=== PATIENT | female | born 2000 | race Caucasian/White ===

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

== ENCOUNTER → 2021-01-06 10:27 | Outpatient (CLI) | payer OTHER, MEDICAID, SELFPAY ==
[2021-01-06] MEDS: COVID-19 VACC #2, MRNA(MOD) 100 MCG/0.5 ML VIAL IM (10:33)
== END ==
PROVIDERS: PCP Family Medicine; Visit Provider Internal Medicine
DX: Z23 Encounter for immunization (principal)
CPT/HCPCS: 0012A; 91301

== ENCOUNTER → 2021-01-24 15:34 | Outpatient (CLI) | payer OTHER, MEDICAID, SELFPAY ==
[2020-05-08 02:13] LABS: Chlamydia trachomatis Negative (Negative); Mycoplasma genitalium Negative (Negative); Neisseria gonorrhoeae Negative (Negative)
== END ==
PROVIDERS: PCP Family Medicine; Referring Provider Family Medicine; Visit Provider Family Medicine
DX: Z11.3 Encounter for screening for infections with a predominantly sexual mode of transmission (principal)
CPT/HCPCS: 87491; 87591

== ENCOUNTER → 2021-04-20 11:29 | Outpatient (CLI) | payer OTHER, MEDICAID, SELFPAY ==
[2021-04-20 12:27] LABS: COVID19 -Nasal RAPID Negative (Negative)
== END ==
PROVIDERS: PCP Family Medicine; Referring Provider Student in an Organized Health Care Education/Training Program; Visit Provider Student in an Organized Health Care Education/Training Program
DX: Z20.822 Contact with and (suspected) exposure to COVID-19 (principal)
CPT/HCPCS: 87635

== ENCOUNTER 2021-06-07 14:05 | Emergency (ER) | payer OTHER, MEDICAID, SELFPAY ==
[2021-06-07 14:08] VITALS: BP 129/76; PULSE 79; RESP 20; TEMP 37.2; O2SAT 100
[2021-06-07 14:51] LABS: COVID19 -Nasal RAPID Negative (Negative)
--- NOTE | 2021-06-07 15:26 | DI.RAD.S_ITS ---
PROCEDURE: XR CHEST 2V INDICATIONS: cough, fever, vomiting TECHNIQUE: 2 views of the chest were acquired. COMPARISON: [facility], , CHEST 2 VIEW, 09/18/2017, 23:21. FINDINGS: Surgical changes and devices: None. Lungs and pleura: Lungs are clear. No pleural effusions or pneumothorax. Mediastinum: Mediastinal contours are normal. Heart size is normal. Bones and chest wall: No suspicious bony abnormalities. Soft tissues appear unremarkable. IMPRESSION: No acute cardiopulmonary abnormalities or focal airspace disease. Dictated by: Doug Davis M.D. on 06/07/2021 at 15:50 Approved by: Doug Davis M.D. on 06/07/2021 at 15:50
--- NOTE | 2021-06-07 15:46 | ED_ITS ---
HPI - URI/Sore Throat General Chief Complaint: Upper Respiratory Symptoms Stated Complaint: Covid like symptoms. Vomitting Time Seen by Provider: 06/07/21 14:12 Source: patient Mode of arrival: Ambulatory History of Present Illness HPI Narrative: 20-year-old female nonsmoker with noncontributory medical history presents with a few days of runny nose, sneezing, dry and hacking cough and vomiting presents for evaluation. She is concerned about possibly having COVID. She is immunized. She denies any exposure to persons known with COVID. She denies any fever or chills. She has no headache and is not dizzy nor weak or lightheaded. She denies any abdominal pain. She has no constipation or diarrhea. Related Data Previous Rx's Medication Instructions Recorded etonogestrel 68 mg subdermal 1 implant SUBDERMAL ONCE #1 each 06/04/20 implant (Nexplanon) clotrimazole 1 % topical cream 1 applictn TOP BID 56 Days #30 gram 06/18/20 ondansetron 4 mg disintegrating 4 mg PO TID-QID PRN #10 tab 06/07/21 tablet Allergies Allergy/AdvReac Type Severity Reaction Status Date / Time amoxicillin [AMOXICILLIN] Allergy Mild RASH Verified 10/18/20 10:53 Review of Systems Review of Systems Narrative: GENERAL: See HPI HEENT: See HPI RESPIRATORY: See HPI CARDIOVASCULAR: Denies chest pain, palpitations, orthopnea, edema, GASTROINTESTINAL: See HPI : Denies dysuria, frequency, incontinence, hematuria, urinary retention. MUSCULOSKELETAL: denies weakness, joint pain, or bony pain SKIN: Denies rash, skin lesions, or other NEUROLOGIC: Denies weakness, headache, numbness, change in speech, confusion, seizures, incoordination. PSYCHIATRIC: No concerning psychosocial issues. 12 point review of systems is negative except for those stated above Patient History Medical History Concussion Depression Generalized anxiety disorder (04/26/17) Major depressive disorder, recurrent severe without psychotic features Menorrhagia with irregular cycle (06/20/16) Primary insomnia (06/20/16) Status post vacuum-assisted vaginal delivery UTI (urinary tract infection) Surgical History Hx of appendectomy Family History Other Family history non-contributory Social History details: Lives with both parents firearms in home: Yes (locked but patient states has access to beltran.) Smoking Status: Never smoker alcohol intake: never substance use type: does not use Smoking Status: Never smoker alcohol intake frequency: 0-2 drinks per day Substance Use Type: does not use Exam Narrative Exam Narrative: GENERAL: [20 year old patient appears stated age. Well-developed patient, in mild distress. Holding an empty emesis bag HEAD: Atraumatic. Normocephalic. EYES: Pupils equal round and reactive. Extraocular motions intact. No scleral icterus. No injection or drainage. ENT: Moist mucous membranes Nose without bleeding, purulent drainage. Throat without erythema, tonsillar hypertrophy or exudate. Airway patent. NECK: Trachea midline. Non tender CARDIOVASCULAR: Regular rate and rhythm without murmurs, gallops, or rubs. RESPIRATORY: Clear to auscultation. Breath sounds equal bilaterally. No wheezes, rales, or rhonchi. No increased work of breathing, no use of intercostals or accessory muscles GASTROINTESTINAL: Abdomen soft, non-tender, nondistended. EXTREMITIES: No edema or joint tenderness. BACK: Nontender without deformity or crepitance. No flank tenderness. NEURO: AOx3. SKIN: No rash or erythema of visible areas Initial Vital Signs Initial Vital Signs: Vital Signs Temperature 99.0 F 06/07/21 14:08 Pulse Rate 79 06/07/21 14:08 Respiratory Rate 20 06/07/21 14:08 Blood Pressure 129/76 06/07/21 14:08 Pulse Oximetry 100 06/07/21 14:08 Course Orders Ordered: ED Orders 06/07/21 14:12 COVID19 -Nasal swab/Pre-Proc Stat 06/07/21 15:26 XR chest 2V Stat Vital Signs Vital signs: Vital Signs - 8 hr 06/07/21 14:08 06/07/21 15:48 Temperature 99.0 F Pulse Rate 79 97 H Respiratory Rate 20 Blood Pressure 129/76 115/62 Pulse Oximetry 100 98 MDM - URI/Sore Throat Lab Data Labs: Lab Results 09/28/21 Range/Units 14:12 SARS-CoV-2 (PCR) Negative (Negative) Imaging Data Chest x-ray: Radiologist's Impression: Lorena Royal??20??F??2000 ? Allergy/Adv: amoxicillin Close Chest X-Ray (Signed) Doug Davis - 06/07/[address] (Signed) CarlosBrian zavala - 12/07/20 Finger X-Ray (Signed) Liliam Monson - 08/18/20 Tibia/Fibula X-Ray (Signed) CarlosBrian zavala - 05/15/20 Ankle X-Ray (Signed) LitchfieldBrian zavala - 05/15/20 Ultrasound (Signed) Liliam Monson - 02/26/[address] (Signed) Doug Davis - 02/09/20 Obstetrics Ultrasound (Signed) Andrae Cantu - 09/11/19 Obstetrics Ultrasound (Signed) Andrae Cantu - 08/29/19 Obstetrics Ultrasound (Signed) Sergio Ocampo - 08/13/19 Ultrasound (Signed) Sergio Ocampo - 07/09/19 Ultrasound (Signed) Claudia Ruiz - 06/26/19 Abdomen Ultrasound (Signed) Radha Ray - 11/03/18 Shoulder X-Ray (Signed) Jimenez Orozco - 09/12/18 Finger X-Ray (Signed) Sergio Ocampo - 08/23/18 Radiology - Historical 11/16/17 Radiology - Historical 09/18/17 Radiology - Historical 05/11/17 Radiology - Historical 05/11/17 Radiology - Historical 03/23/15 Launch?[address] [address] XRay Report Signed Patient: Lorena Royal MR#: [id number] : 2000 Acct:[id number] Age/Sex: 20 / F Date of Service: 06/07/21 Loc: ED Accession Number: [id number] ?? Procedure: XR chest 2V Ordering Provider: Khai Wyman D.O. PROCEDURE:? XR CHEST 2V ? INDICATIONS:? cough, fever, vomiting ? TECHNIQUE:? 2 views of the chest were acquired.? ? COMPARISON:? [facility], , CHEST 2 VIEW, 09/18/2017, 23:21. ? FINDINGS:? ? Surgical changes and devices:? None.? ? Lungs and pleura:? Lungs are clear.? No pleural effusions or pneumothorax.? ? Mediastinum:? Mediastinal contours are normal.? Heart size is normal.? ? Bones and chest wall:? No suspicious bony abnormalities.? Soft tissues appear unremarkable.? ? IMPRESSION:? No acute cardiopulmonary abnormalities or focal airspace disease. ? Dictated by: Doug Davis M.D. on 06/07/2021 at 15:50 ? ? Approved by: Doug Davis M.D. on 06/07/2021 at 15:50 ? MDM Narrative Medical decision making narrative: Very well-appearing patient with widespread symptoms likely to be related to viral infection. COVID is negative, chest x- ray is clear. Patient is tolerating orals, demonstrates no signs of respiratory distress, does not require supplemental oxygen. Well hydrated, moist mucous membranes and appropriate skin turgor. Her abdomen is soft and nontender on exam. Currently no indication for extensive workup, return precautions given and questions answered to her apparent satisfaction. Discharge Plan Departure Patient Disposition: Home Clinical Impression: Viral URI with cough Vomiting Qualifiers: Vomiting type: unspecified Vomiting Intractability: non-intractable Nausea presence: with nausea Qualified Code(s): R11.2 - Nausea with vomiting, unspecified Instructions: DI for Viral Upper Respiratory Infection -- Adult, DI for Vomiting -- Adult Activity Restrictions/Additional Instructions: *You have been diagnosed with [viral upper respiratory infection. No evidence of pneumonia. Your COVID test was negative. *What to do: *Please continue to take your regular medications as directed. [x ] New medication prescriptions sent to your pharmacy: [[facility]] [ ] New medication written as a paper prescription [ ] No new medications given *Please follow up with your primary care provider in 2-3 days, call for an appointment. Let them know you were seen in the Emergency Department and that we ask that you be seen in follow up. We will electronically transmit a record of today's note if your PCP is in our system *If you do not have a primary care provider please contact the [facility] Resource line at [phone]. They will ask some questions about your medical history and help get you set up with a doctor in the community. *Return to Emergency Department if you should have any new, worsening or concerning symptoms, such as [fever greater than 101 F, shaking chills, worsening pain, persistent vomiting or other bothersome symptoms] Prescriptions: New ondansetron 4 mg tablet,disintegrating 4 mg PO TID-QID PRN (Reason: nausea and vomiting) Qty: 10 RF: 0 No Action Nexplanon 68 mg implant 1 implant subdermal ONCE Qty: 1 RF: 0 clotrimazole 1 % cream 1 applictn TOP BID 56 Days Qty: 30 RF: 3 Referrals: Tarun Brumfield MD [Primary Care Provider] - Stand Alone Forms: Work Release Note
[2021-06-07 15:48] VITALS: BP 115/62; PULSE 97; O2SAT 98
== END 2021-06-07 15:58 | disposition home or self-care (01) ==
PROVIDERS: Emergency Provider Emergency Medicine; PCP Family Medicine
DX: J06.9 Acute upper respiratory infection, unspecified (principal); R05 Cough; R11.2 Nausea with vomiting, unspecified; Z20.822 Contact with and (suspected) exposure to COVID-19
CPT/HCPCS: 71046; 87635; 99282; 99283; C9803

== ENCOUNTER → 2021-06-21 12:44 | Outpatient (CLI) | payer OTHER, MEDICAID, SELFPAY ==
[2021-06-21 13:19] LABS: COVID19 -Nasal RAPID Negative (Negative)
== END ==
PROVIDERS: PCP Family Medicine; Visit Provider Nurse Practitioner Family
DX: Z20.822 Contact with and (suspected) exposure to COVID-19 (principal)
CPT/HCPCS: 87635

== ENCOUNTER 2021-11-02 18:13 | Emergency (ER) | payer OTHER, MEDICAID, SELFPAY ==
[2021-11-02 18:18] VITALS: BP 118/79; PULSE 98; RESP 18; TEMP 36.2; O2SAT 100; BMI 23.4
[2021-11-02 18:24] VITALS: PULSE 94; RESP 18
[2021-11-02 18:25] VITALS: BP 118/79; PULSE 95; O2SAT 100
[2021-11-02 18:30] VITALS: PULSE 96; O2SAT 100
[2021-11-02 18:31] VITALS: BP 117/73; PULSE 96; O2SAT 100
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
[2021-11-02] MEDS: IBUPROFEN 400 MG TABLET 800 MG PO (18:44)
[2021-11-02 19:00] VITALS: BP 120/70; PULSE 90; RESP 18; O2SAT 100
== END 2021-11-02 19:22 | disposition home or self-care (01) ==
PROVIDERS: Emergency Provider Emergency Medicine; PCP Family Medicine
DX: T75.4XXA Electrocution, initial encounter (principal); W86.8XXA Exposure to other electric current, initial encounter; Y99.0 Civilian activity done for income or pay
CPT/HCPCS: 93005; 99283

== ENCOUNTER 2022-01-30 22:06 | Emergency (ER) | payer OTHER, MEDICAID, SELFPAY ==
[2022-01-30 22:22] VITALS: BP 129/55; PULSE 98; RESP 16; TEMP 38.3; O2SAT 100; BMI 23.4
[2022-01-30 22:43] VITALS: PULSE 94
--- NOTE | 2022-01-30 23:46 | DI.RAD.S_ITS ---
PROCEDURE: XR CHEST 1V INDICATIONS: suspected sepsis TECHNIQUE: One view of the chest was acquired. COMPARISON: [facility], CR, XR CHEST 2V, 06/07/2021, 15:26. FINDINGS: Surgical changes and devices: None. Lungs and pleura: Lungs are clear. No pleural effusions or pneumothorax. Mediastinum: Mediastinal contours appear normal. Heart size is normal. Bones and chest wall: No suspicious bony lesions. Overlying soft tissues appear unremarkable. IMPRESSION: 1. No acute cardiopulmonary disease. Dictated by: Rohan Garay M.D. on 01/31/2022 at 0:26 Approved by: Rohan Garay M.D. on 01/31/2022 at 0:27
[2022-01-30] MEDS: ONDANSETRON 4 MG/2 ML INJ IV (23:54)
[2022-01-30] MEDS: SODIUM CHLORIDE 0.9% 1,000 ML 1000 ML IV (23:54)
[2022-01-30 23:58] LABS: Add Manual Diff / Slide Review NO; Basophils Absolute Auto 0 /uL (0-100); Basophils Percent Auto 0.3 % (0-2); Eosinophils Absolute Auto 0 /uL (0-450); Eosinophils Percent Auto 0.3 % (2-4); Hematocrit 37.5 % (36-46); Hemoglobin 13.2 g/dL (12.0-16.0); Lymphocytes Absolute Auto 300 /uL (1100-4500); Lymphocytes Percent Auto 3.8 % (25-40); Mean Corpuscular HGB Conc 35.3 % (30-36); Mean Corpuscular Volume 85.1 fL (80-100); Monocytes Absolute Auto 700 /uL (0-900); Neutrophils Absolute Auto 7300 /uL (1500-7000); Neutrophils Percent Auto 87.6 % (50-75); Platelet Count 228 X10^3/uL (150-400); White Blood Cell Count 8.3 X10^3/uL (4.5-11.0)
[2022-01-31 00:02] LABS: Lactate (Lactic Acid) 1.1 mmol/L (0.7-2.1)
[2022-01-31 00:03] LABS: Alanine Aminotransferase 18 IU/L (<35); Albumin 5.1 g/dL (3.5-5.0); Albumin Globulin Ratio 1.5 (1.0-2.8); Alkaline Phosphatase 92 U/L (38-126); Aspartate Aminotransferase 30 IU/L (14-36); BUN Creatinine Ratio 11.7 (6-22); Bilirubin Total 0.9 mg/dL (0.2-1.3); Blood Urea Nitrogen 7 mg/dL (7-17); Calcium 9.6 mg/dL (8.4-10.2); Carbon Dioxide 19 mmol/L (22-32); Chloride 103 mmol/L (98-107); Estimated Glomerular Filt Rate > 60 mL/min (>60); Globulin 3.5 g/dL (1.7-4.1); Glucose 115 mg/dL (70-100); HEMOLYSIS 15 (0-50); Lipase 77 U/L (23-300); Sodium 137 mmol/L (137-145); Total Protein 8.6 g/dL (6.3-8.2)
[2022-01-31 00:11] LABS: Influenza A - CEPHEID Flu A NEGATIVE (NEGATIVE); Influenza B - CEPHEID Flu B NEGATIVE (NEGATIVE)
[2022-01-31 00:20] LABS: Procalcitonin 0.05 ng/mL (<0.5)
[2022-01-31 00:22] LABS: COVID-19 CEPHEID PCR (VTM/NP) POSITIVE (Negative)
[2022-01-31] MEDS: diphenhydrAMINE 50 MG/ML VIAL 25 MG IV (01:02)
[2022-01-31] MEDS: METOCLOPRAMIDE 10 MG/2 ML INJ IV (01:02)
[2022-01-31] MEDS: KETOROLAC 30 MG/ML VIAL 15 MG IV (01:02)
--- NOTE | 2022-01-31 01:36 | ED.HA ---
HPI - Headache General Chief Complaint: Headache Stated Complaint: MIGRAINE Time Seen by Provider: 01/30/22 22:28 Mode of arrival: Wheelchair History of Present Illness HPI Narrative: 21-year-old female nonsmoker with noncontributory medical history presents with significant other and a chief complaint of a fever some generalized headache, runny nose, nasal congestion, sore throat and dry hacking cough over the course of the day. She denies any exposure to persons known to have COVID or influenza. She has no neck pain or chest pain. She denies abdominal pain, vaginal bleeding or discharge nor dysuria, frequency or urgency. She does admit to frequent vomiting. She denies any blurred vision or trouble with speech. Related Data Previous Rx's Medication Instructions Recorded etonogestrel 68 mg subdermal 1 implant SUBDERMAL ONCE #1 each 06/04/20 implant (Nexplanon) clotrimazole 1 % topical cream 1 applictn TOP BID 56 Days #30 gram 06/18/20 ondansetron 4 mg disintegrating 4 mg PO TID-QID PRN #10 tab 06/07/21 tablet benzonatate 100 mg capsule 100 mg PO BID PRN #20 cap 06/21/21 (Tessalon Perles) Allergies Allergy/AdvReac Type Severity Reaction Status Date / Time amoxicillin [AMOXICILLIN] Allergy Mild RASH Verified 10/18/20 10:53 Review of Systems Review of Systems Narrative: GENERAL: See HPI HEENT: See HPI RESPIRATORY: See HPI CARDIOVASCULAR: Denies chest pain, palpitations, orthopnea, edema, GASTROINTESTINAL: See HPI : Denies dysuria, frequency, incontinence, hematuria, urinary retention. MUSCULOSKELETAL: denies weakness, joint pain, or bony pain SKIN: Denies rash, skin lesions, or other NEUROLOGIC: Denies weakness, headache, numbness, change in speech, confusion, seizures, incoordination. PSYCHIATRIC: No concerning psychosocial issues. 12 point review of systems is negative except for those stated above Patient History Medical History Concussion Depression Generalized anxiety disorder (04/26/17) Major depressive disorder, recurrent severe without psychotic features Menorrhagia with irregular cycle (06/20/16) Primary insomnia (06/20/16) Status post vacuum-assisted vaginal delivery UTI (urinary tract infection) Surgical History Hx of appendectomy Family History Other Family history non-contributory Social History details: Lives with both parents firearms in home: Yes (locked but patient states has access to beltran.) Smoking Status: Never smoker alcohol intake: never substance use type: does not use Smoking Status: Never smoker alcohol intake frequency: 0-2 drinks per day Substance Use Type: does not use Exam Narrative Exam Narrative: GENERAL: [21] year old patient appears stated age. Well-developed patient, in mild distress. Appears uncomfortable, actively vomiting HEAD: Atraumatic. Normocephalic. EYES: Pupils equal round and reactive. Extraocular motions intact. No scleral icterus. No injection or drainage. ENT: Nose without bleeding, purulent drainage. Throat without erythema, tonsillar hypertrophy or exudate. Airway patent. NECK: Trachea midline. Non tender, no meningeal signs CARDIOVASCULAR: Regular rate and rhythm without murmurs, gallops, or rubs. RESPIRATORY: Clear to auscultation. Breath sounds equal bilaterally. No wheezes, rales, or rhonchi. GASTROINTESTINAL: Abdomen soft, non-tender, nondistended. EXTREMITIES: No edema or joint tenderness. BACK: Nontender without deformity or crepitance. No flank tenderness. NEURO: AOx3. SKIN: No rash or erythema of visible areas Initial Vital Signs Initial Vital Signs: Vital Signs Temperature 100.9 F H 01/30/22 22:22 Pulse Rate 98 H 01/30/22 22:22 Respiratory Rate 16 01/30/22 22:22 Blood Pressure 129/55 L 01/30/22 22:22 Pulse Oximetry 100 01/30/22 22:22 Course Orders Ordered: Discontinued Medications Diphenhydramine HCl (Diphenhydramine 50 Mg/Ml Vial) 25 mg IV NOW ONE Stop: 01/31/22 00:44 Last Admin: 01/31/22 01:02 Dose: 25 mg Documented by: HUANG Sodium Chloride (Normal Saline 0.9%) 1,000 mls @ 1,000 mls/hr IV BOLUS ONE Stop: 01/31/22 00:45 Last Infusion: 01/31/22 02:38 Dose: 0 mls/hr Documented by: Admin: 01/30/22 23:54 Dose: 1,000 mls/hr Documented by: HUANG Ketorolac Tromethamine (Ketorolac 30 Mg/Ml Vial) 15 mg IV NOW ONE Stop: 01/31/22 00:42 Last Admin: 01/31/22 01:02 Dose: 15 mg Documented by: HUANG Metoclopramide HCl (Metoclopramide 10 Mg/2 Ml Inj) 10 mg IV NOW ONE Stop: 01/31/22 00:42 Last Admin: 01/31/22 01:02 Dose: 10 mg Documented by: HUANG Ondansetron HCl (Ondansetron 4 Mg/2 Ml Inj) 4 mg IV NOW ONE Stop: 01/30/22 23:48 Last Admin: 01/30/22 23:54 Dose: 4 mg Documented by: HUANG Reevaluation(s) Reevaluation #1: Patient has significant if not complete resolution of symptoms after above-stated therapies Vital Signs Vital signs: Vital Signs - 8 hr 01/30/22 22:22 01/30/22 22:43 Temperature 100.9 F H Pulse Rate 98 H 94 H Respiratory Rate 16 Blood Pressure 129/55 L Pulse Oximetry 100 MDM - Headache Lab Data Result diagrams: 01/30/22 23:43 01/30/22 23:43 Labs: Lab Results 01/30/22 01/30/22 01/30/22 Range/Units 22:32 23:43 23:43 WBC 8.3 (4.5-11.0) X10^3/uL RBC 4.40 (4.0-5.2) X10^6/uL Hgb 13.2 (12.0-16.0) g/dL Hct 37.5 (36-46) % MCV 85.1 (80-100) fL MCH 30.0 (26-34) PG MCHC 35.3 (30-36) % RDW 12.0 (11.6-14.8) % Plt Count 228 (150-400) X10^3/uL Neut % (Auto) 87.6 H (50-75) % Lymph % (Auto) 3.8 L (25-40) % [place] % (Auto) 8.0 (3-14) % Eos % (Auto) 0.3 L (2-4) % Baso % (Auto) 0.3 (0-2) % Neut # (Auto) 7300 H (3728-2326) /uL Lymph # (Auto) 300 L (8412-6666) /uL [place] # (Auto) 700 (0-900) /uL Eos # (Auto) 0 (0-450) /uL Baso # (Auto) 0 (0-100) /uL Sodium 137 (137-145) mmol/L Potassium 4.0 (3.4-5.1) mmol/L Chloride 103 (98-107) mmol/L Carbon Dioxide 19 L (22-32) mmol/L BUN 7 (7-17) mg/dL Creatinine 0.60 (0.52-1.04) mg/dL Estimated GFR > 60 (>60) mL/min BUN/Creatinine Ratio 11.7 (6-22) Glucose 115 H (70-100) mg/dL Lactate (0.7-2.1) mmol/L Calcium 9.6 (8.4-10.2) mg/dL Total Bilirubin 0.9 (0.2-1.3) mg/dL AST 30 (14-36) IU/L ALT 18 (<35) IU/L Alkaline Phosphatase 92 (38-126) U/L Total Protein 8.6 H (6.3-8.2) g/dL Albumin 5.1 H (3.5-5.0) g/dL Globulin 3.5 (1.7-4.1) g/dL Albumin/Globulin Ratio 1.5 (1.0-2.8) Lipase 77 (23-300) U/L Procalcitonin 0.05 (<0.5) ng/mL SARS-CoV-2 (PCR) Positive H (Negative) Influenza A (RT-PCR) Flu a negative (NEGATIVE) Influenza B (RT-PCR) Flu b negative (NEGATIVE) 01/30/22 Range/Units 23:43 WBC (4.5-11.0) X10^3/uL RBC (4.0-5.2) X10^6/uL Hgb (12.0-16.0) g/dL Hct (36-46) % MCV (80-100) fL MCH (26-34) PG MCHC (30-36) % RDW (11.6-14.8) % Plt Count (150-400) X10^3/uL Neut % (Auto) (50-75) % Lymph % (Auto) (25-40) % [place] % (Auto) (3-14) % Eos % (Auto) (2-4) % Baso % (Auto) (0-2) % Neut # (Auto) (6197-0252) /uL Lymph # (Auto) (1208-9292) /uL [place] # (Auto) (0-900) /uL Eos # (Auto) (0-450) /uL Baso # (Auto) (0-100) /uL Sodium (137-145) mmol/L Potassium (3.4-5.1) mmol/L Chloride (98-107) mmol/L Carbon Dioxide (22-32) mmol/L BUN (7-17) mg/dL Creatinine (0.52-1.04) mg/dL Estimated GFR (>60) mL/min BUN/Creatinine Ratio (6-22) Glucose (70-100) mg/dL Lactate 1.1 (0.7-2.1) mmol/L Calcium (8.4-10.2) mg/dL Total Bilirubin (0.2-1.3) mg/dL AST (14-36) IU/L ALT (<35) IU/L Alkaline Phosphatase (38-126) U/L Total Protein (6.3-8.2) g/dL Albumin (3.5-5.0) g/dL Globulin (1.7-4.1) g/dL Albumin/Globulin Ratio (1.0-2.8) Lipase (23-300) U/L Procalcitonin (<0.5) ng/mL SARS-CoV-2 (PCR) (Negative) Influenza A (RT-PCR) (NEGATIVE) Influenza B (RT-PCR) (NEGATIVE) MDM Narrative Medical decision making narrative: Headache considerations include, but not limited to: Subarachnoid hemorrhage, but unlikely as patient denies sudden onset of pain, not worst of life, or neck pain Meningitis considered, but thought unlikely given lack of Brudzinski's, Kernig's sign, altered mental status or fever Giant cell arteritis considered, but thought unlikely given lack of unilateral findings, pain in shinto, vision change HTN Emergency considered, but thought unlikely given normal vitals Other serious diagnoses considered unlikely given lack of red flag findings such as sudden onset, increasing frequency, immunocompromise, systemic signs (fever, chills, stiff neck, or rash), focal neurologic findings, trauma, blood thinners, etc. Patient has significant not complete improvement in symptoms after above-stated therapies. She is found to have COVID. Extensive return precautions discussed. She has no respiratory distress, increased work of breathing or hypoxemia. No indication for hospitalization. She is tolerating orals. Discharge Plan Departure Patient Disposition: Home Clinical Impression: COVID-19 Instructions: DI for COVID-19 (Suspected or Confirmed ) Activity Restrictions/Additional Instructions: *You have been diagnosed with [ COVID-19] *What to do: * per recommendations from the CDC and the [facility] Department of Health * stay home except to get medical care. Restrict activities outside your home, except for getting medical care. Do not go to work, school, or public areas. Avoid using public transportation, ride sharing, or taxis. * separate yourself from other people in your home. * call ahead before visiting your doctor * Wear a facemask * Cover your coughs and sneezes * Clean your hands often * Avoid sharing household items * Clean all high-touch services every day * Monitor your symptoms and seek prompt medical attention if your illness is worsening, particularly with difficulty in breathing. You may discontinue your isolation when: 1. You have been fever-free for at least 24 hours without the use of fever reducing medication, AND 2. Your symptoms are getting better, AND 3. At least 5 days have passed since symptoms first appeared 4. If you have fever, continue to stay home until fever resolves Individuals with laboratory confirmed COVID-19 who have not had any symptoms may discontinue home isolation when at least 5 days have passed since the date of their first COVID-19 diagnostic test and have had no subsequent illness You should notifiy any friends and family that have been in close contact *If up to date on COVID Vaccines, then they do not need to quarantine unless symptoms develop. Get tested on day 5 (or sooner if symptoms develop). Take precautions and watch for symptoms until day 10 *If NOT up to date on COVID Vaccines, then CDC recommends quarantine for at least 5 full days. Wear a well fitted mask at home if you must be around others. If they develop symptoms they should get tested. If they remain asymptomatic they should get tested on day 5. They should take precautions and monitor for symptoms until day 10. Prescriptions: No Action Nexplanon 68 mg implant 1 implant subdermal ONCE Qty: 1 0RF clotrimazole 1 % cream 1 applictn TOP BID 56 Days Qty: 30 3RF benzonatate [Tessalon Perles] 100 mg capsule 100 mg PO BID PRN (Reason: cough) Qty: 20 0RF ondansetron 4 mg tablet,disintegrating 4 mg PO TID-QID PRN (Reason: nausea and vomiting) Qty: 10 0RF Referrals: Tarun Brumfield MD [Primary Care Provider] -
[2022-01-31 02:39] VITALS: BP 106/55; PULSE 75; RESP 16; O2SAT 97
== END 2022-01-31 02:41 | disposition home or self-care (01) ==
PROVIDERS: Emergency Provider Emergency Medicine; PCP Family Medicine
DX: U07.1 COVID-19 (principal)
CPT/HCPCS: 36415; 71045; 80053; 83605; 83690; 84145; 85025; 87040; 87635; 96374; 96375; 99284; C9803; J1200; J1885; J2405; J2765

== ENCOUNTER → 2023-08-07 16:25 | Outpatient (CLI) | payer OTHER, MEDICAID, SELFPAY ==
[2023-08-07 18:27] LABS: Add Manual Diff / Slide Review NO; Basophils Absolute Auto 100 /uL (0-100); Basophils Percent Auto 0.7 % (0-2); Eosinophils Absolute Auto 100 /uL (0-450); Eosinophils Percent Auto 1.2 % (2-4); Hemoglobin 12.8 g/dL (12.0-16.0); Lymphocytes Absolute Auto 2400 /uL (1100-4500); Lymphocytes Percent Auto 26.9 % (25-40); Mean Corpuscular HGB Conc 34.5 % (30-36); Mean Corpuscular Hemoglobin 29.7 PG (26-34); Mean Corpuscular Volume 85.9 fL (80-100); Monocytes Absolute Auto 600 /uL (0-900); Monocytes Percent Auto 6.6 % (3-14); Neutrophils Absolute Auto 5800 /uL (1500-7000); Neutrophils Percent Auto 64.6 % (50-75); Platelet Count 230 X10^3/uL (150-400); Red Blood Cell Count 4.31 X10^6/uL (4.0-5.2); Red Cell Distribution Width 12.3 % (11.6-14.8); White Blood Cell Count 8.9 X10^3/uL (4.5-11.0)
[2023-08-07 18:33] LABS: HEMOLYSIS < 15 (0-50); Iron 118 ug/dL (37-170)
[2023-08-07 18:36] LABS: Alanine Aminotransferase 13 IU/L (<35); Albumin 4.7 g/dL (3.5-5.0); Albumin Globulin Ratio 1.5 (1.0-2.8); Alkaline Phosphatase 77 U/L (38-126); Aspartate Aminotransferase 24 IU/L (14-36); BUN Creatinine Ratio 9.4 (6-22); Bilirubin Total 0.7 mg/dL (0.2-1.3); Blood Urea Nitrogen 5 mg/dL (7-17); Calcium 9.5 mg/dL (8.4-10.2); Carbon Dioxide 26 mmol/L (22-32); Chloride 105 mmol/L (98-107); Estimated Glomerular Filt Rate > 60 mL/min (>60); Globulin 3.2 g/dL (1.7-4.1); Glucose 90 mg/dL (70-100); HEMOLYSIS 19 (0-50); Potassium 3.8 mmol/L (3.4-5.1); Sodium 139 mmol/L (137-145); Total Protein 7.9 g/dL (6.3-8.2)
[2023-08-07 18:46] LABS: Percent Iron Saturation 46 % (15-50); Total Iron Binding Capacity 259 ug/dL (265-497); Transferrin 218 mg/dL (206-381)
[2023-08-07 19:05] LABS: TSH w/ Reflex to FT4 0.87 uIU/mL (0.47-4.68)
[2023-08-07 19:08] LABS: Ferritin 31 ng/mL (6-137)
[2023-08-07 19:23] LABS: Vitamin B12 496 pg/mL (239-931)
== END ==
PROVIDERS: PCP Family Medicine; Referring Provider Physician Assistant; Visit Provider Physician Assistant
DX: R00.0 Tachycardia, unspecified (principal); R53.83 Other fatigue; Z86.2 Personal history of diseases of the blood and blood-forming organs and certain disorders involving the immune mechanism
CPT/HCPCS: 36415; 80053; 82607; 82728; 83540; 83550; 84443; 85025

== ENCOUNTER 2023-11-10 16:10 | Emergency (ER) | payer OTHER, MEDICAID, SELFPAY ==
[2023-11-10] VITALS (7 sets, daily range): BP systolic 105–116; BP diastolic 63–71; PULSE 62–81; RESP 14–23; TEMP 36.8; O2SAT 98–100; BMI 21.4
--- NOTE | 2023-11-10 16:24 | DI.RAD.S_ITS ---
PROCEDURE: XR CHEST 1V INDICATIONS: chest pain TECHNIQUE: One view of the chest was acquired. COMPARISON: [facility], CR, XR CHEST 1V, 01/31/2022, 0:12. FINDINGS: Surgical changes and devices: None. Lungs and pleura: Lungs are clear. No pleural effusions or pneumothorax. Mediastinum: Mediastinal contours appear normal. Heart size is normal. Bones and chest wall: No suspicious bony lesions. Overlying soft tissues appear unremarkable. IMPRESSION: No acute cardiopulmonary abnormality is seen. Approved by: Marino Villareal M.D. on 11/10/2023 at 16:11
[2023-11-10 16:55] LABS: Add Manual Diff / Slide Review NO; Basophils Absolute Auto 100 /uL (0-100); Eosinophils Absolute Auto 100 /uL (0-450); Eosinophils Percent Auto 0.9 % (2-4); Hematocrit 36.9 % (36-46); Hemoglobin 12.6 g/dL (12.0-16.0); Lymphocytes Absolute Auto 2700 /uL (1100-4500); Mean Corpuscular HGB Conc 34.2 % (30-36); Mean Corpuscular Hemoglobin 29.3 PG (26-34); Mean Corpuscular Volume 85.8 fL (80-100); Monocytes Absolute Auto 600 /uL (0-900); Neutrophils Absolute Auto 4400 /uL (1500-7000); Neutrophils Percent Auto 56.1 % (50-75); Platelet Count 234 X10^3/uL (150-400); Red Cell Distribution Width 12.5 % (11.6-14.8); White Blood Cell Count 7.8 X10^3/uL (4.5-11.0)
[2023-11-10 17:04] LABS: Alanine Aminotransferase 16 IU/L (<35); Albumin 4.2 g/dL (3.5-5.0); Albumin Globulin Ratio 1.4 (1.0-2.8); Alkaline Phosphatase 80 U/L (38-126); Aspartate Aminotransferase 26 IU/L (14-36); BUN Creatinine Ratio 7.7 (6-22); Bilirubin Total 0.4 mg/dL (0.2-1.3); Blood Urea Nitrogen 4 mg/dL (7-17); Calcium 8.9 mg/dL (8.4-10.2); Carbon Dioxide 25 mmol/L (22-32); Chloride 111 mmol/L (98-107); Estimated Glomerular Filt Rate > 60 mL/min (>60); Globulin 2.9 g/dL (1.7-4.1); Glucose 94 mg/dL (70-100); HEMOLYSIS 16 (0-50); Potassium 3.9 mmol/L (3.4-5.1); Sodium 141 mmol/L (137-145); Total Protein 7.1 g/dL (6.3-8.2)
[2023-11-10 17:16] LABS: Troponin I < 0.012 ng/mL (0.01-0.034)
[2023-11-10 17:20] LABS: HCG Quantitative /Beta subunit < 2.4 mIU/mL
--- NOTE | 2023-11-10 17:59 | ED.CHESTPAIN ---
HPI - Chest Pain General Chief Complaint: Chest Pain Stated Complaint: CHEST PAIN, DIZZY NAUSEA TREMORS Time Seen by Provider: 11/10/23 17:58 Source: patient Mode of arrival: Wheelchair Limitations: no limitations History of Present Illness HPI narrative: 22-year-old female presents with complaint of substernal chest pain chills, some nausea 1 episode of vomiting. Patient states symptoms started about 12 30 today while she was eating. Has not completely resolved. States worse with movement such as leaning forward and backwards. Patient denies any fevers has had some chills. She denies any cold cough or congestion. Patient denies abdominal back or flank pain. No issues with bowel movements, normal urination. No swelling in extremities. She has had similar symptoms in the past in his following up with Cardiology. She is set up for a Holter monitor to start on the 22 of November. Patient currently is on Lexapro, has control implant, was started on a medication that starts with F for blood pressure she thinks it is fluoxetine but is unsure. Patient has had prior appendectomy and tonsillectomy. Allergies to amoxicillin. No tobacco, alcohol or recreational drugs. Family history dad has history of coronary disease and dyslipidemia, paternal uncle and grandfather have similar. Related Data Previous Rx's Medication Instructions Recorded etonogestrel 68 mg subdermal 1 implant subdermal ONCE #1 ea 06/04/23 implant (Nexplanon) escitalopram oxalate 10 mg tablet 10 mg PO DAILY #30 tabs 10/17/23 Allergies Allergy/AdvReac Type Severity Reaction Status Date / Time amoxicillin [AMOXICILLIN] Allergy Mild RASH Verified 10/17/23 11:02 Review of Systems Review of Systems ROS Unobtainable: All systems reviewed & are unremarkable except as noted in HPI and below Patient History Medical History COVID-19 Cough Sinus infection Status post vacuum-assisted vaginal delivery Major depressive disorder, recurrent severe without psychotic features Depression Concussion Generalized anxiety disorder (04/26/17) Primary insomnia (06/20/16) Menorrhagia with irregular cycle (06/20/16) Surgical History Hx of appendectomy Family History Other Family history non-contributory Social History details: Lives with both parents firearms in home: Yes (locked but patient states has access to beltran.) Smoking Status: Never smoker alcohol intake: never substance use type: does not use Smoking Status: Never smoker alcohol intake frequency: 0-2 drinks per day Substance Use Type: marijuana Exam Narrative Exam Narrative: GENERAL: Alert and oriented x three, well-appearing female in acute distress. HEENT: Head normocephalic, atraumatic, EOMI, pupils reactive, face symmetric, moist mucous membranes NECK: Supple, full range of motion CARDIOVASCULAR: Regular rate and rhythm without murmurs, rubs or gallops. No JVD. No edema bilateral lower extremities. No reproducible chest pain. RESPIRATORY: Breath sounds equal bilaterally, no wheezes rales or rhonchi. ABDOMEN: Soft, nontender. Normoactive bowel sounds all 4 quadrants. No guarding or rebound, rigidity, no mass : No CVA tenderness EXTREMITIES: Normal range of motion, no clubbing or edema. Neurovascularly intact NEUROLOGICAL: Cranial nerves II through XII grossly intact. Moving all extremities SKIN: Warm, dry, no petechiae, no rashes or lesions. Initial Vital Signs Initial Vital Signs: Vital Signs Temperature 98.3 F 11/10/23 16:13 Pulse Rate 81 11/10/23 16:13 Respiratory Rate 14 11/10/23 16:13 Blood Pressure 116/63 11/10/23 16:13 Pulse Oximetry 100 11/10/23 16:13 Oxygen Delivery Method Room Air 11/10/23 16:13 Course Orders Ordered: ED Orders 11/10/23 16:24 XR chest 1V Stat EKG-12 Lead Stat 11/10/23 16:30 Beta HCG, Quant [HCG Quantitative /Beta subunit] Stat Complete Blood Count AUTO DIFF Stat Comprehensive Metabolic Panel Stat Troponin I Stat 11/10/23 18:45 Trop I [Troponin I] Stat Vital Signs Vital signs: Vital Signs - 8 hr 11/10/23 16:13 11/10/23 17:00 11/10/23 17:01 Temperature 98.3 F Pulse Rate 81 64 Respiratory Rate 14 Blood Pressure 116/63 116/71 Pulse Oximetry 100 100 Oxygen Delivery Method Room Air 11/10/23 17:01 11/10/23 17:30 11/10/23 17:30 Temperature Pulse Rate 64 62 Respiratory Rate 20 Blood Pressure 105/66 Pulse Oximetry 100 100 Oxygen Delivery Method 11/10/23 18:00 11/10/23 18:00 11/10/23 18:30 Temperature Pulse Rate 64 63 Respiratory Rate 23 18 Blood Pressure 106/66 Pulse Oximetry 99 98 Oxygen Delivery Method 11/10/23 18:30 11/10/23 19:00 11/10/23 19:00 Temperature Pulse Rate 65 Respiratory Rate 19 Blood Pressure 107/67 107/64 Pulse Oximetry 99 Oxygen Delivery Method MDM - Chest Pain Lab Data 11/10/23 16:30 11/10/23 16:30 Labs: Lab Results 11/10/23 11/10/23 Range/Units 16:30 18:45 WBC 7.8 (4.5-11.0) X10^3/uL RBC 4.30 (4.0-5.2) X10^6/uL Hgb 12.6 (12.0-16.0) g/dL Hct 36.9 (36-46) % MCV 85.8 (80-100) fL MCH 29.3 (26-34) PG MCHC 34.2 (30-36) % RDW 12.5 (11.6-14.8) % Plt Count 234 (150-400) X10^3/uL Neut % (Auto) 56.1 (50-75) % Lymph % (Auto) 34.0 (25-40) % [place] % (Auto) 8.0 (3-14) % Eos % (Auto) 0.9 L (2-4) % Baso % (Auto) 1.0 (0-2) % Neut # (Auto) 4400 (3291-3364) /uL Lymph # (Auto) 2700 (2405-7826) /uL [place] # (Auto) 600 (0-900) /uL Eos # (Auto) 100 (0-450) /uL Baso # (Auto) 100 (0-100) /uL Sodium 141 (137-145) mmol/L Potassium 3.9 (3.4-5.1) mmol/L Chloride 111 H (98-107) mmol/L Carbon Dioxide 25 (22-32) mmol/L BUN 4 L (7-17) mg/dL Creatinine 0.52 (0.52-1.04) mg/dL Estimated GFR > 60 (>60) mL/min BUN/Creatinine Ratio 7.7 (6-22) Glucose 94 (70-100) mg/dL Calcium 8.9 (8.4-10.2) mg/dL Total Bilirubin 0.4 (0.2-1.3) mg/dL AST 26 (14-36) IU/L ALT 16 (<35) IU/L Alkaline Phosphatase 80 (38-126) U/L Troponin I < 0.012 0.022 (0.01-0.034) ng/mL Total Protein 7.1 (6.3-8.2) g/dL Albumin 4.2 (3.5-5.0) g/dL Globulin 2.9 (1.7-4.1) g/dL Albumin/Globulin Ratio 1.4 (1.0-2.8) HCG, Quant < 2.4 mIU/mL Urine Dip Bedside Urine Glucose Negative Bedside Urine Bilirubin - Negative Bedside Urine Ketone - Negative Urine Specific [place] 1.020 Bedside Urine Occult Blood - Negative Bedside Urine pH 7.5 Bedside Urine Protein - Negative Bedside Urine Urobilinogen - Negative Bedside Urine Nitrite - Negative Bedside Urine Leukocytes - Negative Esterase Imaging Data Chest x-ray: Radiologist's Impression: [address] [address] XRay Report Signed Patient: Lorena Royal MR#: [id number] : 2000 Acct:[id number] Age/Sex: 22 / F Date of Service: 11/10/23 Loc: ED Accession Number: [id number] Procedure: XR chest 1V Ordering Provider: Harpal Griffin MD PROCEDURE: XR CHEST 1V INDICATIONS: chest pain TECHNIQUE: One view of the chest was acquired. COMPARISON: [facility], , XR CHEST 1V, 01/31/2022, 0:12. FINDINGS: Surgical changes and devices: None. Lungs and pleura: Lungs are clear. No pleural effusions or pneumothorax. Mediastinum: Mediastinal contours appear normal. Heart size is normal. Bones and chest wall: No suspicious bony lesions. Overlying soft tissues appear unremarkable. IMPRESSION: No acute cardiopulmonary abnormality is seen. Approved by: Marino Villareal M.D. on 11/10/2023 at 16:11 ECG Data Attestation: I personally reviewed and interpreted this ECG as follows: Prior ECG tracings: available for review Interpretation: Sinus rhythm rate of 64 MN 134 QRS 86 QTC [address]. No acute ST elevation depression noted. T-waves inverted in V2 which is different from 11/02/2021 but inversions in AVR and V1 are the same. EKG 2. Sinus rhythm rate of 61 MN 148 QRS 84 QTC 420. No acute or dynamic changes between EKG 1 and 2. MDM Narrative Medical decision making narrative: 22 year old female with complaint of chest pain chills some nausea. Patient currently has mild symptoms. Patient defers viral testing such as respiratory panel. CBC shows no significant change to white count, hemoglobin or platelets. CMP normal electrolytes, renal function, BUN and glucose. Negative troponin. Serum hCG is less than 2.4. Chest x-ray is negative. EKG shows change in 1 lead but otherwise all leads appear similar from priors in 2021. Repeat EKG shows no dynamic changes. Plan for repeat troponin is negative at 0.022 Patient is already following with Cardiology for evaluation, plan to continue and she is Holter monitor ordered for the 22 of November. Discharge Plan Departure Patient Disposition: Home Clinical Impression: Chest pain Instructions: DI for Chest Pain Activity Restrictions/Additional Instructions: Follow-up with cardiology team, let them know about your most recent symptoms. Continue your home medications as prescribed. Please return for new or worsening symptoms, increasing chest pain, shortness of breath, passing out, persistent vomiting, new swelling in her extremities or other new or concerning changes. Prescriptions: No Action Nexplanon 68 mg implant 1 implant subdermal ONCE Qty: 1 0RF escitalopram oxalate 10 mg tablet 10 mg PO DAILY Qty: 30 1RF Referrals: Tarun Brumfield MD [Primary Care Provider] - Stand Alone Forms: Patient Portal/API
[2023-11-10 19:14] LABS: Troponin I 0.022 ng/mL (0.01-0.034)
== END 2023-11-10 19:32 | disposition home or self-care (01) ==
PROVIDERS: Emergency Medicine; Emergency Provider Emergency Medicine; PCP Family Medicine
DX: R07.9 Chest pain, unspecified (principal); R11.2 Nausea with vomiting, unspecified
CPT/HCPCS: 36415; 71045; 80053; 81003; 84484; 84702; 85025; 93005; 99283; 99284

== ENCOUNTER → 2024-01-02 10:32 | Outpatient (CLI) | payer OTHER, MEDICAID, SELFPAY ==
--- NOTE | 2024-01-02 10:34 | DI.RAD.S_ITS ---
PROCEDURE: XR WRIST RT MIN 3V INDICATIONS: Forearm pain L and I TECHNIQUE: 4 views of the wrist were acquired. COMPARISON: [facility], , WRIST MINIMUM 3 VIEWS RIGHT, 08/24/2016, 14:10. FINDINGS: Suboptimal lateral view slightly limits evaluation. Bones: No fractures or dislocations. No suspicious bony lesions. Soft tissues: No suspicious soft tissue calcifications. IMPRESSION: No acute bony abnormality. If clinical symptoms persist, consider repeat radiograph in 10-14 days versus cross-sectional imaging. Dictated by: Ted Lynn M.D. on 01/02/2024 at 17:06 Approved by: Ted Lynn M.D. on 01/02/2024 at 17:07
--- NOTE | 2024-01-02 10:34 | DI.RAD.S_ITS ---
PROCEDURE: XR FOREARM RT 2V INDICATIONS: Forearm pain L and I TECHNIQUE: 2 views of the forearm were acquired. COMPARISON: [facility], CR, XR WRIST RT MIN 3V, 01/02/2024, 10:34. FINDINGS: Bones: No fractures or dislocations. Normal alignment. No suspicious bony lesions. Soft tissues: No suspicious soft tissue calcifications or masses. IMPRESSION: No acute bony abnormality. Dictated by: Ted Lynn M.D. on 01/02/2024 at 17:02 Approved by: Ted Lynn M.D. on 01/02/2024 at 17:05
== END ==
LOC: RAD 10:33
PROVIDERS: PCP Family Medicine; Referring Provider Nurse Practitioner Family; Visit Provider Nurse Practitioner Family
DX: S40.021A Contusion of right upper arm, initial encounter (principal); X58.XXXA Exposure to other specified factors, initial encounter
CPT/HCPCS: 73090; 73110

== ENCOUNTER 2024-03-02 14:44 | Emergency (ER) | payer OTHER, MEDICAID, SELFPAY ==
[2024-03-02] VITALS (12 sets, daily range): BP systolic 102–126; BP diastolic 56–72; PULSE 59–75; RESP 13–27; O2SAT 96–100; BMI 22.4
[2024-03-02 16:01] LABS: Alanine Aminotransferase 15 IU/L (<35); Albumin Globulin Ratio 1.5 (1.0-2.8); Alkaline Phosphatase 69 U/L (38-126); Aspartate Aminotransferase 29 IU/L (14-36); BUN Creatinine Ratio 11.3 (6-22); Bilirubin Total 0.6 mg/dL (0.2-1.3); Blood Urea Nitrogen 8 mg/dL (7-17); Calcium 9.7 mg/dL (8.4-10.2); Carbon Dioxide 27 mmol/L (22-32); Chloride 107 mmol/L (98-107); Estimated Glomerular Filt Rate > 60 mL/min (>60); Globulin 3.3 g/dL (1.7-4.1); Glucose 89 mg/dL (70-100); HEMOLYSIS < 15 (0-50); Lipase 97 U/L (23-300); Potassium 4.1 mmol/L (3.4-5.1); Sodium 140 mmol/L (137-145); Total Protein 8.3 g/dL (6.3-8.2)
[2024-03-02 16:02] LABS: Add Manual Diff / Slide Review NO; Basophils Absolute Auto 100 /uL (0-100); Basophils Percent Auto 0.7 % (0-2); Eosinophils Absolute Auto 100 /uL (0-450); Eosinophils Percent Auto 1.1 % (2-4); Hematocrit 37.4 % (36-46); Hemoglobin 12.8 g/dL (12.0-16.0); Lymphocytes Absolute Auto 2400 /uL (1100-4500); Lymphocytes Percent Auto 27.7 % (25-40); Mean Corpuscular HGB Conc 34.1 % (30-36); Mean Corpuscular Hemoglobin 29.6 PG (26-34); Mean Corpuscular Volume 86.7 fL (80-100); Monocytes Absolute Auto 500 /uL (0-900); Monocytes Percent Auto 5.6 % (3-14); Neutrophils Absolute Auto 5600 /uL (1500-7000); Neutrophils Percent Auto 64.9 % (50-75); Platelet Count 243 X10^3/uL (150-400); Red Blood Cell Count 4.31 X10^6/uL (4.0-5.2); Red Cell Distribution Width 12.4 % (11.6-14.8); White Blood Cell Count 8.6 X10^3/uL (4.5-11.0)
--- NOTE | 2024-03-02 18:15 | PC.NURSE ---
pt reports 8/10 lower abdominal pain that radiates to her lower back, she reports that she lives with abdominal pain but this feels 'worse'. pt reports she had her appendix out at 14
--- NOTE | 2024-03-02 18:58 | ED_ITS ---
HPI - Abdominal Pain General Chief Complaint: Urogenital-Female Stated Complaint: severe sharp abd pain Time Seen by Provider: 03/02/24 17:58 Source: patient Mode of arrival: Ambulatory History of Present Illness HPI narrative: 23-year-old female presents by private vehicle from home for sharp right-sided lower quadrant abdominal pain since approximately 8:00 a.m. today. Pain is constant, intermittently worsens, associated nausea. Took Tylenol at home earlier this morning without significant relief of symptoms. Previous surgical history of appendectomy. Related Data Home Medications Medication Instructions Recorded Confirmed fludrocortisone 0.1 mg tablet 0.1 mg PO DAILY 11/21/23 01/02/24 Previous Rx's Medication Instructions Recorded etonogestrel 68 mg subdermal 1 implant subdermal ONCE #1 ea 06/04/23 implant (Nexplanon) escitalopram oxalate 10 mg tablet 15 mg (1.5 x 10 mg) PO DAILY #45 01/14/24 tabs hyoscyamine sulfate 0.125 mg tablet 0.125 mg PO BID-QID PRN dyspepsia 03/02/24 #30 tabs ondansetron 4 mg disintegrating 4 mg PO Q8H PRN nausea and 03/02/24 tablet vomiting #30 tabs Allergies Allergy/AdvReac Type Severity Reaction Status Date / Time amoxicillin [AMOXICILLIN] Allergy Mild RASH Verified 01/02/24 10:15 Patient History Medical History COVID-19 Cough Sinus infection Status post vacuum-assisted vaginal delivery Major depressive disorder, recurrent severe without psychotic features Depression Concussion Generalized anxiety disorder (04/26/17) Primary insomnia (06/20/16) Menorrhagia with irregular cycle (06/20/16) Surgical History Hx of appendectomy Family History Other Family history non-contributory Social History details: Lives with both parents firearms in home: Yes (locked but patient states has access to beltran.) Smoking Status: Never smoker alcohol intake: never substance use type: does not use Smoking Status: Never smoker alcohol intake frequency: 0-2 drinks per day Substance Use Type: marijuana Exam Initial Vital Signs Initial Vital Signs: Vital Signs Pulse Rate 75 03/02/24 17:57 Blood Pressure 126/72 03/02/24 17:57 Pulse Oximetry 100 03/02/24 17:57 Const: Awake, alert, no acute distress, nontoxic appearing Cardiac: regular rate, regular rhythm RESP: unlabored, clear bilaterally, no wheezing GI: Soft, right upper and lower quadrant tenderness to deep palpation without rebound or guarding Skin: Warm, Dry, intact, no rashes Neuro: AO x3, CN II-XII grossly intact, moves all extremities Course Orders Ordered: Discontinued Medications Ketorolac Tromethamine (Ketorolac 30 Mg/Ml Vial) 15 mg IV NOW ONE Stop: 03/02/24 18:59 Last Admin: 03/02/24 19:03 Dose: 15 mg Documented By: WALE Ondansetron HCl (Ondansetron 4 Mg/2 Ml Inj) 4 mg IV NOW PRN PRN Reason: Nausea And Vomiting Ondansetron HCl (Ondansetron 4 Mg Odt) 4 mg PO NOW PRN PRN Reason: Nausea And Vomiting Vital Signs Vital signs: Vital Signs - 8 hr 03/02/24 17:57 03/02/24 17:57 03/02/24 18:00 Pulse Rate 75 Respiratory Rate Blood Pressure 126/72 115/65 Pulse Oximetry 100 Oxygen Delivery Method 03/02/24 18:00 03/02/24 18:30 03/02/24 18:30 Pulse Rate 66 62 Respiratory Rate 23 Blood Pressure 104/59 L Pulse Oximetry 100 100 Oxygen Delivery Method 03/02/24 19:00 03/02/24 19:00 Pulse Rate 63 Respiratory Rate 27 H Blood Pressure 105/57 L Pulse Oximetry 98 Oxygen Delivery Method Room Air MDM - Abdominal Pain Differential Diagnosis Differential diagnosis: Likely abdominal pain, acute appendicitis and calculus of kidney Lab Data 03/02/24 15:42 03/02/24 15:42 Labs: Lab Results 03/02/24 Range/Units 15:42 WBC 8.6 (4.5-11.0) X10^3/uL RBC 4.31 (4.0-5.2) X10^6/uL Hgb 12.8 (12.0-16.0) g/dL Hct 37.4 (36-46) % MCV 86.7 (80-100) fL MCH 29.6 (26-34) PG MCHC 34.1 (30-36) % RDW 12.4 (11.6-14.8) % Plt Count 243 (150-400) X10^3/uL Neut % (Auto) 64.9 (50-75) % Lymph % (Auto) 27.7 (25-40) % [place] % (Auto) 5.6 (3-14) % Eos % (Auto) 1.1 L (2-4) % Baso % (Auto) 0.7 (0-2) % Neut # (Auto) 5600 (3132-9392) /uL Lymph # (Auto) 2400 (3875-4308) /uL [place] # (Auto) 500 (0-900) /uL Eos # (Auto) 100 (0-450) /uL Baso # (Auto) 100 (0-100) /uL Sodium 140 (137-145) mmol/L Potassium 4.1 (3.4-5.1) mmol/L Chloride 107 (98-107) mmol/L Carbon Dioxide 27 (22-32) mmol/L BUN 8 (7-17) mg/dL Creatinine 0.71 (0.52-1.04) mg/dL Estimated GFR > 60 (>60) mL/min BUN/Creatinine Ratio 11.3 (6-22) Glucose 89 (70-100) mg/dL Calcium 9.7 (8.4-10.2) mg/dL Total Bilirubin 0.6 (0.2-1.3) mg/dL AST 29 (14-36) IU/L ALT 15 (<35) IU/L Alkaline Phosphatase 69 (38-126) U/L Total Protein 8.3 H (6.3-8.2) g/dL Albumin 5.0 (3.5-5.0) g/dL Globulin 3.3 (1.7-4.1) g/dL Albumin/Globulin Ratio 1.5 (1.0-2.8) Lipase 97 (23-300) U/L Point of care testing: Point of Care Testing Test Results Negative Urine Dip Bedside Urine Glucose Negative Bedside Urine Bilirubin - Negative Bedside Urine Ketone - Negative Urine Specific [place] 1.005 Bedside Urine Occult Blood - Negative Bedside Urine pH 6.0 Bedside Urine Protein - Negative Bedside Urine Urobilinogen - Negative Bedside Urine Nitrite - Negative Bedside Urine Leukocytes - Negative Esterase Imaging Data US - abdomen: Radiologist's Impression: PROCEDURE: US ABDOMEN LIMITED INDICATIONS: RUQ ABD PAIN TECHNIQUE: Real-time scanning was performed of the abdominal and retroperitoneal organs, with image documentation. COMPARISON: [facility], US, US ABDOMEN COMPLETE, 11/03/2018, 11:35. FINDINGS: Liver: Liver is normal in size and homogeneous in echotexture. Gallbladder: No gallstones. No wall thickening. No pericholecystic edema. Negative sonographic Grimaldo's sign. Biliary ducts: Intrahepatic bile ducts are non-dilated. Extrahepatic bile duct caliber measures 2 mm. Normal is 6-7 mm or less in diameter, or 10 mm or less post-cholecystectomy. Pancreas: Visualized portions of the pancreas are sonographically normal. Miscellaneous: No free abdominal fluid. IMPRESSION: No acute sonographic abnormality. Normal gallbladder. Approved by: Owen Jackson M.D. on 03/02/2024 at 19:50 CT scan - abdomen/pelvis: Radiologist's Impression: PROCEDURE: CT ABDOMEN PELVIS W CON INDICATIONS: R SIDED ABD PAIN, NEG US TECHNIQUE: After the administration of intravenous contrast, axial sections acquired from the lung bases to the pubic symphysis. Coronal and sagittal reformats were performed. For radiation dose reduction, the following was used: automated exposure control, adjustment of mA and/or kV according to patient size. COMPARISON: [facility], US, US ABDOMEN LIMITED, 03/02/2024, 19:36. [facility], CT, ABDOMEN/PELVIS WITH CONTRAST, 05/11/2017, 21:33. FINDINGS: Image quality: Diagnostic. Lower Chest: No significant findings. ABDOMEN: Liver: No solid mass. Gallbladder: No radiopaque gallstones or wall thickening. Biliary ducts: No biliary dilation. Pancreas: No ductal dilation. Spleen: Size is within normal limits. Adrenal Glands: No adrenal nodules. Kidneys and Ureters: No hydronephrosis. No solid mass. No complex renal cystic lesion which requires follow up. Stomach and Bowel: There is no bowel obstruction. Suggestion of mild small bowel wall thickening and enhancement is seen without significant pericolonic fat stranding. Mild colonic wall thickening is also noted. No abscess collection. Peritoneum: No abnormal intraperitoneal fluid. No free air. Ventral Wall: No significant ventral hernia. Abdominal Nodes: No retroperitoneal or mesenteric adenopathy by size criteria. Vessels: Aorta and inferior vena cava are normal in size. PELVIS: Pelvic Organs: Unremarkable. Bladder: No bladder wall thickening, accounting for underdistention. Pelvic Nodes: No enlarged lymph nodes. Miscellaneous: No inguinal hernias are seen. Bones: No aggressive osseous abnormality. IMPRESSION: 1. Finding is concerning for low-grade enterocolitis. No bowel obstruction. No abscess collection. No free fluid or free air. 2. No renal stones or hydronephrosis. Normal appearing urinary bladder. Dictated by: Sergio Ocampo M.D. on 03/02/2024 at 20:58 Approved by: Sergio Ocampo M.D. on 03/02/2024 at 21:01 [facility] Narrative Medical decision making narrative: Nontoxic patient with 1 day of pain in the right side of her abdomen. Patient reports right lower quadrant pain but points to her upper abdomen as source of most discomfort. Laboratory work and ultrasound imaging ordered. Laboratory work shows no acute abnormalities. WBC count 8.6, hemoglobin 12.8, platelets 243, sodium 140, potassium 4.1, creatinine 0.71, normal liver enzymes. Point of care urinalysis shows negative test and no indications of infection. Ultrasound of the abdomen and pelvis shows no acute abnormalities. We will order CT scan since no obvious cause of patient's significant discomfort has been found. CT of the abdomen and pelvis shows low-grade enterocolitis. With normal labs I have low suspicion for bacterial process at this time and this will likely self resolve. Patient informed of lab and imaging results, recommended conservative management with [id number] analgesics and antinausea medications. Antispasmodic medications also sent to pharmacy for symptomatic relief. Discharge Plan Departure Patient Disposition: Home Clinical Impression: Enterocolitis Instructions: DI for Viral Gastroenteritis -- Adult Activity Restrictions/Additional Instructions: Your laboratory work and imaging today did not show any concerning abnormalities. You did have some inflammation in your small intestine concerning for enterocolitis, which is usually viral in nature and fixes itself on its own. Anti spasm medication and nausea medication has been sent to your pharmacy. Follow up with your primary care doctor. Prescriptions: New hyoscyamine sulfate 0.125 mg tablet 0.125 mg PO BID-QID PRN (Reason: dyspepsia) Qty: 30 0RF ondansetron 4 mg tablet,disintegrating 4 mg PO Q8H PRN (Reason: nausea and vomiting) Qty: 30 0RF No Action Nexplanon 68 mg implant 1 implant subdermal ONCE Qty: 1 0RF escitalopram oxalate 10 mg tablet 15 mg PO DAILY Qty: 45 2RF fludrocortisone 0.1 mg tablet 0.1 mg PO DAILY Referrals: Tarun Brumfield MD [Primary Care Provider] - Stand Alone Forms: Patient Portal/API, Work Release Note
[2024-03-02] MEDS: KETOROLAC 30 MG/ML VIAL 15 MG IV (19:03)
--- NOTE | 2024-03-02 19:59 | DI.CT.S_ITS ---
PROCEDURE: CT ABDOMEN PELVIS W CON INDICATIONS: R SIDED ABD PAIN, NEG US TECHNIQUE: After the administration of intravenous contrast, axial sections acquired from the lung bases to the pubic symphysis. Coronal and sagittal reformats were performed. For radiation dose reduction, the following was used: automated exposure control, adjustment of mA and/or kV according to patient size. COMPARISON: [facility], US, US ABDOMEN LIMITED, 03/02/2024, 19:36. [facility], CT, ABDOMEN/PELVIS WITH CONTRAST, 05/11/2017, 21:33. FINDINGS: Image quality: Diagnostic. Lower Chest: No significant findings. ABDOMEN: Liver: No solid mass. Gallbladder: No radiopaque gallstones or wall thickening. Biliary ducts: No biliary dilation. Pancreas: No ductal dilation. Spleen: Size is within normal limits. Adrenal Glands: No adrenal nodules. Kidneys and Ureters: No hydronephrosis. No solid mass. No complex renal cystic lesion which requires follow up. Stomach and Bowel: There is no bowel obstruction. Suggestion of mild small bowel wall thickening and enhancement is seen without significant pericolonic fat stranding. Mild colonic wall thickening is also noted. No abscess collection. Peritoneum: No abnormal intraperitoneal fluid. No free air. Ventral Wall: No significant ventral hernia. Abdominal Nodes: No retroperitoneal or mesenteric adenopathy by size criteria. Vessels: Aorta and inferior vena cava are normal in size. PELVIS: Pelvic Organs: Unremarkable. Bladder: No bladder wall thickening, accounting for underdistention. Pelvic Nodes: No enlarged lymph nodes. Miscellaneous: No inguinal hernias are seen. Bones: No aggressive osseous abnormality. IMPRESSION: 1. Finding is concerning for low-grade enterocolitis. No bowel obstruction. No abscess collection. No free fluid or free air. 2. No renal stones or hydronephrosis. Normal appearing urinary bladder. Dictated by: Sergio Ocampo M.D. on 03/02/2024 at 20:58 Approved by: Sergio Ocampo M.D. on 03/02/2024 at 21:01
== END 2024-03-02 21:34 | disposition home or self-care (01) ==
PROVIDERS: Emergency Medicine; Emergency Provider Emergency Medicine; PCP Family Medicine
DX: K52.9 Noninfective gastroenteritis and colitis, unspecified (principal)
CPT/HCPCS: 36415; 74177; 76705; 80053; 81003; 81025; 83690; 85025; 96374; 99284; J1885

== ENCOUNTER 2024-03-31 07:41 | Emergency (ER) | payer OTHER, MEDICAID, SELFPAY ==
[2024-03-31 07:52] VITALS: BP 136/88; PULSE 98; RESP 16; TEMP 36.9; O2SAT 99; BMI 22.4
--- NOTE | 2024-03-31 08:40 | ED_ITS ---
HPI - Abdominal Pain General Chief Complaint: Abdominal Pain Stated Complaint: intense period cramps per pt Time Seen by Provider: 03/31/24 08:28 Source: patient Mode of arrival: Ambulatory History of Present Illness HPI narrative: Patient is a 23-year-old healthy female who presents today with abdominal cramping. 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 She is having intense midline pain. She has been taking Tylenol without any relief. She does have the Implanon implant in. She has not concerned for an STD she has no history of ovarian cysts. She was told not to take ibuprofen she was having some stomach issues no fever. Related Data Home Medications Medication Instructions Recorded Confirmed fludrocortisone 0.1 mg tablet 0.1 mg PO DAILY 11/21/23 01/02/24 Previous Rx's Medication Instructions Recorded etonogestrel 68 mg subdermal 1 implant subdermal ONCE #1 ea 06/04/23 implant (Nexplanon) escitalopram oxalate 10 mg tablet 15 mg (1.5 x 10 mg) PO DAILY #45 01/14/24 tabs hyoscyamine sulfate 0.125 mg tablet 0.125 mg PO BID-QID PRN dyspepsia 03/02/24 #30 tabs ondansetron 4 mg disintegrating 4 mg PO Q8H PRN nausea and 03/02/24 tablet vomiting #30 tabs Allergies Allergy/AdvReac Type Severity Reaction Status Date / Time amoxicillin [AMOXICILLIN] Allergy Mild RASH Verified 01/02/24 10:15 Patient History Medical History COVID-19 Cough Sinus infection Status post vacuum-assisted vaginal delivery Major depressive disorder, recurrent severe without psychotic features Depression Concussion Generalized anxiety disorder (04/26/17) Primary insomnia (06/20/16) Menorrhagia with irregular cycle (06/20/16) Surgical History Hx of appendectomy Family History Other Family history non-contributory Social History details: Lives with both parents firearms in home: Yes (locked but patient states has access to beltran.) Smoking Status: Never smoker alcohol intake: never substance use type: does not use Smoking Status: Never smoker alcohol intake frequency: 0-2 drinks per day Substance Use Type: marijuana Exam Initial Vital Signs Initial Vital Signs: Vital Signs Temperature 98.4 F 03/31/24 07:52 Pulse Rate 98 H 03/31/24 07:52 Respiratory Rate 16 03/31/24 07:52 Blood Pressure 136/88 03/31/24 07:52 Pulse Oximetry 99 03/31/24 07:52 Oxygen Delivery Method Room Air 03/31/24 07:52 GENERAL: Well-appearing, well-nourished and in no acute distress. CARDIOVASCULAR: peripheral pulses in tact, cap refill <2 sec RESPIRATORY: No respiratory distress, speaks in full sentences without difficulty ABDOMEN: Soft, lower midline suprapubic mild discomfort no right lower quadrant pain no left lower quadrant pain no guarding no rebound EXTREMITIES: Normal range of motion, no clubbing or edema. Neurovascularly intact NEUROLOGICAL: Cranial nerves II through XII grossly intact. Normal gait and speech. SKIN: Warm, dry, no petechiae, no rashes or lesions. Course Orders Ordered: Discontinued Medications Ketorolac Tromethamine (Ketorolac 30 Mg/Ml Vial) 30 mg IM NOW ONE Stop: 03/31/24 08:41 Last Admin: 03/31/24 08:51 Dose: 30 mg Documented By: Ondansetron HCl (Ondansetron 4 Mg/2 Ml Inj) 4 mg IV NOW PRN PRN Reason: Nausea And Vomiting Ondansetron HCl (Ondansetron 4 Mg Odt) 4 mg SL NOW PRN PRN Reason: Nausea And Vomiting Vital Signs Vital signs: Vital Signs - 8 hr 03/31/24 07:52 Temperature 98.4 F Pulse Rate 98 H Respiratory Rate 16 Blood Pressure 136/88 Pulse Oximetry 99 Oxygen Delivery Method Room Air MDM - Abdominal Pain Lab Data Point of care testing: Point of Care Testing Test Results Negative Urine Dip Bedside Urine Glucose Negative Bedside Urine Bilirubin - Negative Bedside Urine Ketone - Negative Urine Specific [place] 1.000 Bedside Urine Occult Blood - Negative Bedside Urine pH 6.0 Bedside Urine Protein - Negative Bedside Urine Urobilinogen - Negative Bedside Urine Nitrite - Negative Bedside Urine Leukocytes - Negative Esterase MDM Narrative Medical decision making narrative: Patient 23-year-old female presents today with abdominal cramping which she thinks is menstrual cramps. She says this is abnormal for her. 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 Mildly tender. No real concern for ovarian torsion or ovarian cyst. test is negative urinalysis does not show any UTI. Discussed with her concern for STD she declines. He has given a shot of Toradol here in the ED supportive care only. May require further evaluate if symptoms continue however she has only had worsening cramping since 1:00 a.m.. Discharge Plan Departure Patient Disposition: Home Clinical Impression: Dysmenorrhea Instructions: DI for Dysmenorrhea Activity Restrictions/Additional Instructions: *You have been diagnosed with painful menstrual cycle *What to do: At this time I do think you are having menstrual cramps. Your test is negative your urinalysis is clear. You are given a shot of Toradol here in the ED. *Continue to take medications as directed [place] [id number] take as directed *Follow up with your primary care provider in 2-3 days or call [phone] *Return to ER if you should have heavy bleeding more than 2 super pads or tampons in 1 hour dizziness lightheadedness worsening pain or any new, worsening or concerning symptoms Prescriptions: No Action Nexplanon 68 mg implant 1 implant subdermal ONCE Qty: 1 0RF escitalopram oxalate 10 mg tablet 15 mg PO DAILY Qty: 45 2RF fludrocortisone 0.1 mg tablet 0.1 mg PO DAILY hyoscyamine sulfate 0.125 mg tablet 0.125 mg PO BID-QID PRN (Reason: dyspepsia) Qty: 30 0RF ondansetron 4 mg tablet,disintegrating 4 mg PO Q8H PRN (Reason: nausea and vomiting) Qty: 30 0RF Referrals: Tarun Brumfield MD [Primary Care Provider] - Stand Alone Forms: Patient Portal/API
[2024-03-31] MEDS: KETOROLAC 30 MG/ML VIAL IM (08:51)
[2024-03-31 08:57] VITALS: BP 118/76; PULSE 82; RESP 16; O2SAT 100
== END 2024-03-31 08:57 | disposition home or self-care (01) ==
PROVIDERS: Emergency Provider Emergency Medicine; PCP Family Medicine
DX: N94.6 Dysmenorrhea, unspecified (principal)
CPT/HCPCS: 81003; 81025; 96372; 99283; J1885

== ENCOUNTER → 2024-04-01 09:34 | Outpatient (CLI) | payer OTHER, MEDICAID, SELFPAY ==
[2024-04-01 10:42] LABS: Add Manual Diff / Slide Review NO; Basophils Absolute Auto 0 /uL (0-100); Basophils Percent Auto 0.5 % (0-2); Eosinophils Absolute Auto 0 /uL (0-450); Eosinophils Percent Auto 0.7 % (2-4); Hematocrit 37.1 % (36-46); Hemoglobin 12.7 g/dL (12.0-16.0); Lymphocytes Absolute Auto 1500 /uL (1100-4500); Lymphocytes Percent Auto 20.1 % (25-40); Mean Corpuscular HGB Conc 34.2 % (30-36); Mean Corpuscular Hemoglobin 29.8 PG (26-34); Mean Corpuscular Volume 87.1 fL (80-100); Monocytes Absolute Auto 600 /uL (0-900); Monocytes Percent Auto 7.9 % (3-14); Neutrophils Absolute Auto 5200 /uL (1500-7000); Neutrophils Percent Auto 70.8 % (50-75); Platelet Count 241 X10^3/uL (150-400); Red Blood Cell Count 4.26 X10^6/uL (4.0-5.2); Red Cell Distribution Width 12.7 % (11.6-14.8); White Blood Cell Count 7.3 X10^3/uL (4.5-11.0)
[2024-04-01 10:59] LABS: C-Reactive Protein Quant < 0.5 mg/dL (<1.0)
[2024-04-01 11:03] LABS: Erythrocyte Sedimentation Rate 3 MM/HR (0-20)
[2024-04-03 21:09] LABS: Deamidated Gliadin Ab IgA 3 units (0-19); Deamidated Gliadin Ab IgG 3 units (0-19); Immunoglobulin A,Qn 139 mg/dL (87-352); t-Transglutaminase IgA <2 U/mL (0-3)
== END ==
PROVIDERS: PCP Family Medicine; Referring Provider Family Medicine; Visit Provider Family Medicine
DX: K92.1 Melena (principal)
CPT/HCPCS: 36415; 82784; 83516; 85025; 85651; 86140

== ENCOUNTER 2024-04-07 10:24 | Emergency (ER) | payer OTHER, MEDICAID, SELFPAY ==
[2024-04-07] VITALS (9 sets, daily range): BP systolic 95–120; BP diastolic 53–87; PULSE 60–74; RESP 13–23; TEMP 36.7; O2SAT 97–100; BMI 22.4
--- NOTE | 2024-04-07 10:37 | DI.RAD.S_ITS ---
PROCEDURE: XR CHEST 1V INDICATIONS: chest pain TECHNIQUE: One view of the chest was acquired. COMPARISON: [facility], CR, XR CHEST 1V, 11/10/2023, 16:28. FINDINGS: Surgical changes and devices: None. Lungs and pleura: Lungs are clear. No pleural effusions or pneumothorax. Mediastinum: Mediastinal contours appear normal. Heart size is normal. Bones and chest wall: No suspicious bony lesions. Overlying soft tissues appear unremarkable. IMPRESSION: No acute cardiopulmonary pathology. Dictated by: Sergio Ocampo M.D. on 04/07/2024 at 11:29 Approved by: Sergio Ocampo M.D. on 04/07/2024 at 11:31
--- NOTE | 2024-04-07 10:49 | EKG_ITS ---
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
--- NOTE | 2024-04-07 10:53 | ED_ITS ---
HPI - General Adult General Chief complaint: Syncope Stated complaint: Fainted at work Time Seen by Provider: 04/07/24 10:52 Mode of arrival: Wheelchair History of Present Illness HPI narrative: 23-year-old woman with a history of recurrent syncope and extensive workup today. She has been seen by Cardiology in diagnosed with tachycardia and orthostatic hypotension. She has had negative outpatient rhythm studies, negative echocardiogram, is currently on escitalopram, fludrocortisone to help with symptoms. Typically she will have episodes while she is at home. This morning she got up had breakfast when about her usual routine when she got to work she had a syncopal episode and woke up on the floor. She notes she did hit her head. She has not sure how long she was out as she was the only 1 in the store that time. She does not describe a postictal period, no headaches no myalgias, no loss of bowel or bladder function. She has never been observed to have any type of seizure-like activity with these syncopal episodes. Related Data Home Medications Medication Instructions Recorded Confirmed fludrocortisone 0.1 mg tablet 0.1 mg PO DAILY 11/21/23 04/01/24 Previous Rx's Medication Instructions Recorded etonogestrel 68 mg subdermal 1 implant subdermal ONCE #1 ea 06/04/23 implant (Nexplanon) escitalopram oxalate 10 mg tablet 15 mg (1.5 x 10 mg) PO DAILY #45 01/14/24 tabs hyoscyamine sulfate 0.125 mg tablet 0.125 mg PO BID-QID PRN dyspepsia 03/02/24 #30 tabs ondansetron 4 mg disintegrating 4 mg PO Q8H PRN nausea and 03/02/24 tablet vomiting #30 tabs norgestimate 0.25 mg-ethinyl 1 tab PO DAILY #84 tabs 04/01/24 estradiol 35 mcg tablet Allergies Allergy/AdvReac Type Severity Reaction Status Date / Time amoxicillin [AMOXICILLIN] Allergy Mild RASH Verified 04/07/24 10:37 Review of Systems Review of Systems Narrative: Pertinent positive and negative findings as per HPI Patient History Medical History (Updated 04/07/24 @ 13:22 by Pamela Roca MD) COVID-19 Cough Sinus infection Status post vacuum-assisted vaginal delivery Major depressive disorder, recurrent severe without psychotic features Depression Concussion Generalized anxiety disorder (04/26/17) Primary insomnia (06/20/16) Menorrhagia with irregular cycle (06/20/16) Surgical History Hx of appendectomy Family History Other Family history non-contributory Social History details: Lives with both parents firearms in home: Yes (locked but patient states has access to beltran.) Smoking Status: Never smoker alcohol intake: never substance use type: does not use Smoking Status: Never smoker alcohol intake frequency: 0-2 drinks per day Substance Use Type: marijuana Exam Initial Vital Signs Initial Vital Signs: Vital Signs Temperature 98.1 F 04/07/24 10:32 Pulse Rate 70 04/07/24 10:32 Respiratory Rate 16 04/07/24 10:32 Blood Pressure 95/53 L 04/07/24 10:32 Pulse Oximetry 99 04/07/24 10:32 Oxygen Delivery Method Room Air 04/07/24 10:32 General: Healthy appearing, in no acute distress. Able to give a complete and coherent history. Well-nourished well-developed HEENT: Moist mucous membranes, normal sclera with reactive pupils, Neck: No JVD, supple Respiratory: Lungs are clear to auscultation, no wheezing no rales no rhonchi. Full and symmetrical air movement Cardiac: Regular rate and rhythm no murmurs no bruits Abdomen: Soft, nontender, good bowel tones, no flank pain Skin: Warm and dry, no rashes Neurologic: Grossly neurologically intact with no obvious asymmetries or abnormalities Extremities: No trauma, well perfused Psych: Cooperative, appropriate insight and affect Course Orders Ordered: ED Orders 04/07/24 10:37 XR chest 1V Stat EKG-12 Lead Stat 04/07/24 10:45 Complete Blood Count AUTO DIFF Stat Comprehensive Metabolic Panel Stat Lipase Stat Magnesium Stat NT-proBNP (BNP-Adult 18+) Stat PTT Partial Thromboplastin Joe Stat Prothrombin Time INR Stat Troponin & CK Cardiac Panel Stat Urine Microscopic Stat 04/07/24 12:32 CT head/brain wo con Stat Discontinued Medications Aspirin (Aspirin 81 Mg Chew Tab) 324 mg PO NOW ONE Stop: 04/07/24 10:38 Last Admin: 04/07/24 11:34 Dose: Not Given Documented By: WALE Sodium Chloride (Normal Saline 0.9%) 1,000 mls @ 1,000 mls/hr IV BOLUS ONE Stop: 04/07/24 11:54 Last Infusion: 04/07/24 12:04 Dose: Infused Documented By: Admin: 04/07/24 11:16 Dose: 1,000 mls/hr Documented By: WALE Vital Signs Vital signs: Vital Signs - 8 hr 04/07/24 10:32 04/07/24 10:52 04/07/24 10:54 Temperature 98.1 F Pulse Rate 70 60 65 Respiratory Rate 16 Blood Pressure 95/53 L Pulse Oximetry 99 100 99 Oxygen Delivery Method Room Air 04/07/24 10:54 04/07/24 11:00 04/07/24 11:00 Temperature Pulse Rate 66 Respiratory Rate 15 Blood Pressure 114/70 119/69 Pulse Oximetry 99 Oxygen Delivery Method 04/07/24 11:30 04/07/24 11:30 04/07/24 12:00 Temperature Pulse Rate 72 72 Respiratory Rate 23 23 Blood Pressure 112/87 Pulse Oximetry 100 99 Oxygen Delivery Method 04/07/24 12:00 04/07/24 12:30 04/07/24 12:30 Temperature Pulse Rate 69 Respiratory Rate 23 Blood Pressure 120/71 104/67 Pulse Oximetry 100 Oxygen Delivery Method 04/07/24 13:07 04/07/24 13:08 04/07/24 13:08 Temperature Pulse Rate 74 65 Respiratory Rate 23 13 Blood Pressure 110/60 Pulse Oximetry 97 98 Oxygen Delivery Method Medical Decision Making Lab Data 04/07/24 10:45 04/07/24 10:45 Labs: Lab Results 04/07/24 Range/Units 10:45 WBC 7.8 (4.5-11.0) X10^3/uL RBC 4.32 (4.0-5.2) X10^6/uL Hgb 12.8 (12.0-16.0) g/dL Hct 37.7 (36-46) % MCV 87.4 (80-100) fL MCH 29.6 (26-34) PG MCHC 33.8 (30-36) % RDW 12.4 (11.6-14.8) % Plt Count 248 (150-400) X10^3/uL Neut % (Auto) 68.7 (50-75) % Lymph % (Auto) 25.1 (25-40) % [place] % (Auto) 5.1 (3-14) % Eos % (Auto) 0.6 L (2-4) % Baso % (Auto) 0.5 (0-2) % Neut # (Auto) 5300 (2568-8286) /uL Lymph # (Auto) 2000 (8494-2101) /uL [place] # (Auto) 400 (0-900) /uL Eos # (Auto) 0 (0-450) /uL Baso # (Auto) 0 (0-100) /uL PT 11.8 (9.4-12.5) SECONDS INR 1.0 (0.9-1.3) APTT 33 (25.1-36.5) SECONDS Sodium 139 (137-145) mmol/L Potassium 4.2 (3.4-5.1) mmol/L Chloride 108 H (98-107) mmol/L Carbon Dioxide 23 (22-32) mmol/L BUN 8 (7-17) mg/dL Creatinine 0.70 (0.52-1.04) mg/dL Estimated GFR > 60 (>60) mL/min BUN/Creatinine Ratio 11.4 (6-22) Glucose 95 (70-100) mg/dL Calcium 9.3 (8.4-10.2) mg/dL Magnesium 2.0 (1.6-2.3) mg/dL Total Bilirubin 0.7 (0.2-1.3) mg/dL AST 29 (14-36) IU/L ALT 16 (<35) IU/L Alkaline Phosphatase 65 (38-126) U/L Total Creatine Kinase 106 (30-135) U/L Troponin I < 0.012 (0.01-0.034) ng/mL NT-Pro-B Natriuret Pep 145 H (<125) pg/mL Total Protein 8.0 (6.3-8.2) g/dL Albumin 4.9 (3.5-5.0) g/dL Globulin 3.1 (1.7-4.1) g/dL Albumin/Globulin Ratio 1.6 (1.0-2.8) Lipase 74 (23-300) U/L Urine RBC 0-1/hpf (0-5/HPF) Urine WBC None seen (0-5/HPF) Ur Squamous Epith Cells None seen (0-5/HPF) Urine Bacteria None seen (None) Ur Culture Indicated? Cult not indicated Vol Urine Centrifuged 10ml (spun) Point of Care Testing Test Results Negative Urine Dip Bedside Urine Glucose Negative Bedside Urine Bilirubin - Negative Bedside Urine Ketone - Negative Urine Specific [place] 1.010 Bedside Urine Occult Blood +/- Bedside Urine pH 6.0 Bedside Urine Protein - Negative Bedside Urine Urobilinogen - Negative Bedside Urine Nitrite - Negative Bedside Urine Leukocytes - Negative Esterase Point of care testing: Point of Care Testing Test Results Negative Urine Dip Bedside Urine Glucose Negative Bedside Urine Bilirubin - Negative Bedside Urine Ketone - Negative Urine Specific [place] 1.010 Bedside Urine Occult Blood +/- Bedside Urine pH 6.0 Bedside Urine Protein - Negative Bedside Urine Urobilinogen - Negative Bedside Urine Nitrite - Negative Bedside Urine Leukocytes - Negative Esterase MDM Narrative Medical decision making narrative: CC: Syncope Complicating co-morbidities: Orthostatic hypotension on Florinef Data collected from: patient, parents Differential considered: Seizure, cardiac arrhythmia, orthostatic hypotension, Exam documented above, pertinent findings include: Completely benign exam Lab Test results independently reviewed as above. Pertinent findings: CBC is unremarkable Chemistries are reassuring ProBNP is not elevated Troponin is undetectable Independently reviewed EKG: Sinus rhythm at a rate of 69, sinus arrhythmia is appreciated, no ischemic changes Imaging studies independently reviewed: Chest x-ray is unremarkable CT scan of the head is unremarkable Treatments: A L of fluid is given Discussion: 23-year-old woman with a history of recurrent syncope felt to be secondary to orthostatic hypotension. Currently on Florinef as well as escitalopram to help with symptoms overall. Episode this morning with unknown loss of consciousness probable head injury as well. CT scan is unremarkable. Remainder of lab workup is reassuring. No evidence of acute coronary event, seizure, infection, sepsis. She is feeling significantly improved. Blood pressure is appropriate. She will be discharged to home with no additional indications for further workup advanced imaging or hospitalization. Discharge Plan Departure Patient Disposition: Home Clinical Impression: Chronic orthostatic hypotension Syncope Qualifiers: Syncope type: unspecified Qualified Code(s): R55 - Syncope and collapse Instructions: DI for Orthostatic Hypotension Activity Restrictions/Additional Instructions: Thank You for coming in today I am sorry that you had another episode of passing out this morning. Fortunately I am not finding any life-threatening abnormalities. There was no evidence of life-threatening heart arrhythmia, tumors masses or bleeding inside your brain, significant electrolyte abnormalities, severe anemia, , infection The CT scan of your brain was reassuring. I would encourage you to continue with all of your usual medications and continue to make sure that you are as hydrated as possible and that you are standing up slowly when you do go from a seated to a standing position. Please keep all of your outpatient follow up appointments as scheduled. If you feel that you are getting worse or having new symptoms please return to the ER Prescriptions: No Action norgestimate-ethinyl estradiol 0.25-35 mg-mcg tablet 1 tab PO DAILY Qty: 84 3RF Nexplanon 68 mg implant 1 implant subdermal ONCE Qty: 1 0RF escitalopram oxalate 10 mg tablet 15 mg PO DAILY Qty: 45 2RF fludrocortisone 0.1 mg tablet 0.1 mg PO DAILY hyoscyamine sulfate 0.125 mg tablet 0.125 mg PO BID-QID PRN (Reason: dyspepsia) Qty: 30 0RF ondansetron 4 mg tablet,disintegrating 4 mg PO Q8H PRN (Reason: nausea and vomiting) Qty: 30 0RF Referrals: Tarun Brumfield MD [Primary Care Provider] - Stand Alone Forms: Patient Portal/API
[2024-04-07 11:01] LABS: Add Manual Diff / Slide Review NO; Basophils Absolute Auto 0 /uL (0-100); Basophils Percent Auto 0.5 % (0-2); Eosinophils Absolute Auto 0 /uL (0-450); Eosinophils Percent Auto 0.6 % (2-4); Hematocrit 37.7 % (36-46); Hemoglobin 12.8 g/dL (12.0-16.0); Lymphocytes Absolute Auto 2000 /uL (1100-4500); Lymphocytes Percent Auto 25.1 % (25-40); Mean Corpuscular HGB Conc 33.8 % (30-36); Mean Corpuscular Hemoglobin 29.6 PG (26-34); Mean Corpuscular Volume 87.4 fL (80-100); Monocytes Absolute Auto 400 /uL (0-900); Monocytes Percent Auto 5.1 % (3-14); Neutrophils Absolute Auto 5300 /uL (1500-7000); Neutrophils Percent Auto 68.7 % (50-75); Platelet Count 248 X10^3/uL (150-400); Red Blood Cell Count 4.32 X10^6/uL (4.0-5.2); Red Cell Distribution Width 12.4 % (11.6-14.8); White Blood Cell Count 7.8 X10^3/uL (4.5-11.0)
[2024-04-07 11:02] LABS: Urine Volume 10mL (spun)
[2024-04-07 11:10] LABS: Bacteria Urine None Seen; RBC Urine 0-1/HPF (0-5/HPF); Squamous Epithelial Cell Urine None Seen (0-5/HPF); WBC Urine None Seen (0-5/HPF)
[2024-04-07 11:11] LABS: Culture Indicated Urine Cult Not Indicated
[2024-04-07 11:16] LABS: Alanine Aminotransferase 16 IU/L (<35); Albumin 4.9 g/dL (3.5-5.0); Albumin Globulin Ratio 1.6 (1.0-2.8); Alkaline Phosphatase 65 U/L (38-126); Aspartate Aminotransferase 29 IU/L (14-36); BUN Creatinine Ratio 11.4 (6-22); Bilirubin Total 0.7 mg/dL (0.2-1.3); Blood Urea Nitrogen 8 mg/dL (7-17); Calcium 9.3 mg/dL (8.4-10.2); Carbon Dioxide 23 mmol/L (22-32); Chloride 108 mmol/L (98-107); Creatine Kinase 106 U/L (30-135); Estimated Glomerular Filt Rate > 60 mL/min (>60); Globulin 3.1 g/dL (1.7-4.1); Glucose 95 mg/dL (70-100); HEMOLYSIS < 15 (0-50); Lipase 74 U/L (23-300); Potassium 4.2 mmol/L (3.4-5.1); Sodium 139 mmol/L (137-145)
[2024-04-07] MEDS: SODIUM CHLORIDE 0.9% 1,000 ML 1000 ML IV (11:16)
[2024-04-07 11:17] LABS: Prothrombin Time 11.8 SECONDS (9.4-12.5)
[2024-04-07 11:20] LABS: PTT Partial Thromboplastin Tim 33 SECONDS (25.1-36.5)
[2024-04-07 11:28] LABS: NT-proBNP (BNP-Adult 18+) 145 pg/mL (<125); Troponin I < 0.012 ng/mL (0.01-0.034)
--- NOTE | 2024-04-07 12:32 | DI.CT.S_ITS ---
PROCEDURE: CT HEAD/BRAIN WO CON INDICATIONS: syncope, fall, hit head TECHNIQUE: Noncontrast 4.5 mm thick angled axial sections acquired from the foramen magnum to the vertex, with coronal and sagittal reformats. For radiation dose reduction, the following was used: automated exposure control, adjustment of mA and/or kV according to patient size. COMPARISON: [facility], CT, CT HEAD/BRAIN WO CON, 02/09/2020, 1:00. FINDINGS: Image quality: Diagnostic. CSF spaces: Basal cisterns are patent. No extra-axial fluid collections. Ventricles are normal in size and shape. Brain: No midline shift. No intracranial masses or hemorrhage. [place]-white matter interface is normal. Skull and face: Calvarium and visualized facial bones are intact, without suspicious lesions. Sinuses: Visualized sinuses and mastoids are clear. IMPRESSION: No acute intracranial pathology. Dictated by: Sergio Ocampo M.D. on 04/07/2024 at 13:11 Approved by: Sergio Ocampo M.D. on 04/07/2024 at 13:12
== END 2024-04-07 13:25 | disposition home or self-care (01) ==
PROVIDERS: Emergency Provider Emergency Medicine; PCP Family Medicine
DX: I95.1 Orthostatic hypotension (principal)
CPT/HCPCS: 36415; 70450; 71045; 80053; 81003; 81015; 81025; 82550; 83690; 83735; 83880; 84484; 85025; 85610; 85730; 93005; 99284

== ENCOUNTER → 2024-04-16 16:15 | Outpatient (CLI) | payer OTHER, MEDICAID, SELFPAY ==
--- NOTE | 2024-04-16 16:16 | DI.US.S_ITS ---
PROCEDURE: US PELVIC COMPLETE INDICATIONS: dysmenorrhea TECHNIQUE: Real-time scanning was performed of the pelvic organs, with image documentation. Additional endovaginal scanning was necessary due to incomplete visualization of the adnexal and endometrial structures by transabdominal scanning. COMPARISON: [facility], CT, CT ABDOMEN PELVIS W CON, 03/02/2024, 20:27. FINDINGS: Uterus: Uterus is retroverted and normal in size at 6.6 x 3.2 x 3.6 cm. The myometrium is heterogeneous. The endometrium measures 2.3 mm combined thickness. No uterine fibroids. Ovaries: The right ovary measures 2.0 x 1.1 x 2.4 cm, with a calculated ovarian volume of 2.7 cc. The left ovary measures 2.7 x 1.2 x 1.9 cm, with a calculated ovarian volume of 3.2 cc. Greater than 12 follicles can be seen in each ovary. No adnexal masses are seen. Other: No pathologic free abdominal or pelvic fluid. IMPRESSION: Greater than 12 sub-5 mm follicular cysts bilaterally which can be associated with polycystic ovarian morphology, recommend clinical correlation. We strive to produce accurate, complete, and clear reports of imaging services. To assist us in improving patient care, this report was composed using standard report templates and voice recognition software. Therefore, it may contain abnormal punctuation, insertions and/or omissions. Occasional wrong-word or sound-alike substitutions may occur. Though we review the report and make efforts to correct it, we do recommend that the report be read carefully in proper context to recognize any text inaccuracies. Dictated by: Carlos Drew M.D. on 04/16/2024 at 19:05 Approved by: Carlos Drew M.D. on 04/16/2024 at 19:07
== END ==
PROVIDERS: PCP Family Medicine; Referring Provider Family Medicine; Visit Provider Family Medicine
DX: N94.6 Dysmenorrhea, unspecified (principal); N83.02 Follicular cyst of left ovary; N83.01 Follicular cyst of right ovary
CPT/HCPCS: 76856

== ENCOUNTER → 2024-04-17 10:34 | Outpatient (CLI) | payer OTHER, MEDICAID, SELFPAY ==
[2024-04-21 19:09] LABS: Interpretation Negative (Negative)
== END ==
PROVIDERS: PCP Family Medicine; Referring Provider Surgery; Visit Provider Surgery
DX: R10.9 Unspecified abdominal pain (principal)
CPT/HCPCS: 83013; 99213

== ENCOUNTER → 2024-04-23 14:26 | Outpatient (CLI) | payer OTHER, MEDICAID, SELFPAY ==
[2024-04-23 15:07] LABS: Add Manual Diff / Slide Review NO; Basophils Absolute Auto 100 /uL (0-100); Basophils Percent Auto 0.6 % (0-2); Eosinophils Absolute Auto 0 /uL (0-450); Eosinophils Percent Auto 0.5 % (2-4); Hematocrit 34.6 % (36-46); Lymphocytes Absolute Auto 2100 /uL (1100-4500); Lymphocytes Percent Auto 22.3 % (25-40); Mean Corpuscular HGB Conc 34.5 % (30-36); Mean Corpuscular Hemoglobin 30.2 PG (26-34); Mean Corpuscular Volume 87.4 fL (80-100); Monocytes Absolute Auto 600 /uL (0-900); Neutrophils Absolute Auto 6700 /uL (1500-7000); Neutrophils Percent Auto 70.6 % (50-75); Platelet Count 249 X10^3/uL (150-400); Red Blood Cell Count 3.97 X10^6/uL (4.0-5.2); Red Cell Distribution Width 12.5 % (11.6-14.8); White Blood Cell Count 9.4 X10^3/uL (4.5-11.0)
[2024-04-23 15:35] LABS: Hemoglobin A1C% w Est Avg Glu 4.5 % (4.0-6.0)
[2024-04-23 15:36] LABS: Alanine Aminotransferase 17 IU/L (<35); Albumin 4.4 g/dL (3.5-5.0); Albumin Globulin Ratio 1.8 (1.0-2.8); Alkaline Phosphatase 65 U/L (38-126); Aspartate Aminotransferase 29 IU/L (14-36); BUN Creatinine Ratio 17.6 (6-22); Bilirubin Total 0.5 mg/dL (0.2-1.3); Blood Urea Nitrogen 12 mg/dL (7-17); Calcium 9.4 mg/dL (8.4-10.2); Carbon Dioxide 22 mmol/L (22-32); Chloride 106 mmol/L (98-107); Estimated Glomerular Filt Rate > 60 mL/min (>60); Globulin 2.5 g/dL (1.7-4.1); Glucose 109 mg/dL (70-100); HEMOLYSIS < 15 (0-50); Sodium 138 mmol/L (137-145); Total Protein 6.9 g/dL (6.3-8.2)
== END ==
LOC: LAB 14:27
PROVIDERS: PCP Family Medicine; Referring Provider Family Medicine; Visit Provider Family Medicine
DX: N92.1 Excessive and frequent menstruation with irregular cycle (principal); E28.2 Polycystic ovarian syndrome; R10.9 Unspecified abdominal pain
CPT/HCPCS: 36415; 80053; 83036; 83525; 84402; 84403; 85025

== ENCOUNTER 2024-05-05 10:39 | Emergency (ER) | payer OTHER, MEDICAID, SELFPAY ==
[2024-05-05 10:59] VITALS: BP 115/64; PULSE 68; RESP 17; TEMP 36.9; O2SAT 97; BMI 22.4
--- NOTE | 2024-05-05 11:02 | DI.RAD.S_ITS ---
PROCEDURE: XR HAND LT MIN 3V INDICATIONS: slammed in car door TECHNIQUE: 3 views of the hand(s) acquired. COMPARISON: None. FINDINGS: Bones: No fractures or dislocations. Carpal bones are normally aligned. No suspicious bony lesions. Soft tissues: No suspicious soft tissue calcifications. IMPRESSION: No acute bony abnormality. Dictated by: Alfredo Santiago M.D. on 05/05/2024 at 11:30 Approved by: Alfredo Santiago M.D. on 05/05/2024 at 11:31
[2024-05-05 11:41] VITALS: PULSE 78
--- NOTE | 2024-05-05 11:42 | ED.UPPEXIN ---
HPI - Extremity Injury (Upper) General Chief Complaint: Extremity Injury, Upper Stated Complaint: Left hand injury Time Seen by Provider: 05/05/24 11:41 Source: patient Mode of arrival: Ambulatory History of Present Illness HPI narrative: 23-year-old right-handed Michaelle, caught her left pinky finger and 4th finger in the car door as it slammed this morning in the wind, complains of pain and swelling to the left pinky finger, also some in the 4th finger on that side. No laceration or bleeding. She is able to fully extend her fingers, some pain left affected fingers with flexion. Denies other injuries. No pain to other left hand fingers, wrist, forearm, elbow, arm, shoulder, clavicle, scapula. She denies pain to her face, scalp, neck, upper back, lower back, abdomen pelvis, right upper extremity, both lower extremities. Related Data Home Medications Medication Instructions Recorded Confirmed midodrine 10 mg tablet 20 mg PO DAILY Hypotension 04/30/24 04/30/24 Previous Rx's Medication Instructions Recorded etonogestrel 68 mg subdermal 1 implant subdermal ONCE #1 ea 06/04/23 implant (Nexplanon) escitalopram oxalate 10 mg tablet 15 mg (1.5 x 10 mg) PO DAILY #45 01/14/24 tabs hyoscyamine sulfate 0.125 mg tablet 0.125 mg PO BID-QID PRN dyspepsia 03/02/24 #30 tabs ondansetron 4 mg disintegrating 4 mg PO Q8H PRN nausea and 03/02/24 tablet vomiting #30 tabs norgestimate 0.25 mg-ethinyl 1 tab PO DAILY #84 tabs 04/01/24 estradiol 35 mcg tablet Allergies Allergy/AdvReac Type Severity Reaction Status Date / Time amoxicillin [AMOXICILLIN] Allergy Mild RASH Verified 05/05/24 10:59 Review of Systems Review of Systems Narrative: see HPI Patient History Medical History (Updated 05/05/24 @ 11:46 by Lam Venegas MD) PCOS (polycystic ovarian syndrome) COVID-19 Cough Sinus infection Status post vacuum-assisted vaginal delivery Major depressive disorder, recurrent severe without psychotic features Depression Concussion Generalized anxiety disorder (04/26/17) Primary insomnia (06/20/16) Menorrhagia with irregular cycle (06/20/16) Surgical History Hx of appendectomy Family History Other Family history non-contributory Social History marital status: unmarried,single details: Lives with both parents number of children: 1 household members: none lives independently: Yes occupational status: employed firearms in home: Yes (locked but patient states has access to beltran.) Smoking Status: Never smoker alcohol intake: never substance use type: does not use and marijuana Smoking Status: Never smoker alcohol intake frequency: 0-2 drinks per day Substance Use Type: marijuana Exam Narrative Exam Narrative: GENERAL: Well-developed patient, in mild distress. HEAD: Atraumatic. Normocephalic. EYES: Pupils equal round and reactive. Extraocular motions intact. No scleral icterus. No injection or drainage. ENT: Nose without bleeding, purulent drainage. Throat without erythema, tonsillar hypertrophy or exudate. Airway patent. NECK: Trachea midline. Non tender CARDIOVASCULAR: Regular rate and rhythm without murmurs, gallops, or rubs. RESPIRATORY: Clear to auscultation. Breath sounds equal bilaterally. No wheezes, rales, or rhonchi. GASTROINTESTINAL: Abdomen soft, non-tender, nondistended. EXTREMITIES: Tenderness with some swelling to the left 5th finger, no skin laceration or abrasion changes, some tenderness to left 4th finger, no gross deformities, can fully extend, limited flexion due to pain. No tenderness to left palm, wrist, forearm, elbow, upper arm, clavicle, shoulder. BACK: Nontender without deformity or crepitance. No flank tenderness. NEURO: AOx3. SKIN: No rash or erythema of visible areas Initial Vital Signs Initial Vital Signs: Vital Signs Temperature 98.5 F 05/05/24 10:59 Pulse Rate 68 05/05/24 10:59 Respiratory Rate 17 05/05/24 10:59 Blood Pressure 115/64 05/05/24 10:59 Pulse Oximetry 97 05/05/24 10:59 Oxygen Delivery Method Room Air 05/05/24 10:59 Course Orders Ordered: ED Orders 05/05/24 11:02 XR hand LT min 3V Stat Vital Signs Vital signs: Vital Signs - 8 hr 05/05/24 10:59 05/05/24 11:41 Temperature 98.5 F Pulse Rate 68 Pulse Rate [Left Radial] 78 Respiratory Rate 17 Blood Pressure 115/64 Pulse Oximetry 97 Oxygen Delivery Method Room Air MDM - Extremity Injury (Upper) Imaging Data Extremity x-ray #1: Radiologist's Impression: [address] [address] XRay Report Signed Patient: Lorena Royal MR#: [id number] : 2000 Acct:[id number] Age/Sex: 23 / F Date of Service: 05/05/24 Loc: ED Accession Number: [id number] Procedure: XR hand LT min 3V Ordering Provider: Lam Venegas MD PROCEDURE: XR HAND LT MIN 3V INDICATIONS: slammed in car door TECHNIQUE: 3 views of the hand(s) acquired. COMPARISON: None. FINDINGS: Bones: No fractures or dislocations. Carpal bones are normally aligned. No suspicious bony lesions. Soft tissues: No suspicious soft tissue calcifications. IMPRESSION: No acute bony abnormality. Dictated by: Alfredo Santiago M.D. on 05/05/2024 at 11:30 Approved by: Alfredo Santiago M.D. on 05/05/2024 at 11:31 [facility] Narrative Medical decision making narrative: 23-year-old right-handed female, caught left 4th and 5th fingers in car door this morning, pain and swelling on exam. X-rays ordered at triage had been read already by Radiology, no fractures obvious. See radiology report. She can fully extend at her MCPs and IP joints. No obvious subungual hematoma. No lacerations or abrasions or skin changes. Finger splint to left most affected 5th finger, amy tape/Coban 2 days and 4th finger. She reports that she can do some more recent work, advised that she wear her splint and keep elevated, use dyog-igl-cpimpds pain medications as needed. Recheck with the regular doctor in the next couple of days to see if work status can be change. Discharge Plan Departure Patient Disposition: Home Clinical Impression: Contusion of left hand Activity Restrictions/Additional Instructions: Contusion injury to the left 5th/pinky finger as well as some contusion injury to the left 4/ring finger, caught in a car door earlier this morning. Some swelling on examination, able to fully extend, some limitation in flexion due to pain and swelling. No skin interruption changes. Nailbed look okay. No gross deformities. X-rays read by Radiology, no obvious fracture or dislocation changes. Left 5th finger splint applied, with some taping/Coban wrapping to the adjacent 4th finger. Please wear your splint and keep elevated, use Tylenol and or Motrin as needed for pain control. Ice/cold application if tolerated to reduce swelling and pain. Consider recheck in the next couple of days with your regular doctor to see if your splint can be discontinued, and/or work status liberalized, or if you need to wear splint further with work restrictions. Return earlier to this/nearest emergency department for any change worsening symptoms or any concerns prior Prescriptions: No Action norgestimate-ethinyl estradiol 0.25-35 mg-mcg tablet 1 tab PO DAILY Qty: 84 3RF midodrine 10 mg tablet 20 mg PO DAILY Nexplanon 68 mg implant 1 implant subdermal ONCE Qty: 1 0RF escitalopram oxalate 10 mg tablet 15 mg PO DAILY Qty: 45 2RF hyoscyamine sulfate 0.125 mg tablet 0.125 mg PO BID-QID PRN (Reason: dyspepsia) Qty: 30 0RF ondansetron 4 mg tablet,disintegrating 4 mg PO Q8H PRN (Reason: nausea and vomiting) Qty: 30 0RF Referrals: Tarun Brumfield MD [Primary Care Provider] - Stand Alone Forms: Patient Portal/API
== END 2024-05-05 12:01 | disposition home or self-care (01) ==
PROVIDERS: Emergency Provider Emergency Medicine; PCP Family Medicine
DX: S60.222A Contusion of left hand, initial encounter (principal); W23.0XXA Caught, crushed, jammed, or pinched between moving objects, initial encounter
CPT/HCPCS: 29130; 73130; 99283

== ENCOUNTER 2024-05-23 13:49 | Day surgery (SDC) | payer OTHER, MEDICAID, SELFPAY ==
--- NOTE | 2024-05-23 | PATH_ITS ---
[facility] Accession Number: [id number] No. of containers..02 Tissue . 01 Material submitted: . PART A: gastrointestinal site - GASTRIC BIOPSY PART B: colon - RANDOM COLON . 01 Diagnosis: A. STOMACH, BIOPSY: Body-type mucosa with focal features suggestive of nearby erosion. Negative for Helicobacter by immunohistochemistry. Negative for intestinal metaplasia. Negative for dysplasia and malignancy. . B. RANDOM COLON, BIOPSIES: Colonic mucosa with no diagnostic abnormality. Negative for active, chronic, and microscopic colitis. Negative for dysplasia and malignancy. . MRV 05/29/2024 1337 Local . 01 Electronically signed: . Ester Pepe MD, Pathologist NPI- [id number] . 01 Gross description: . Part A: GASTRIC BIOPSY: Received in formalin are 2 fragment(s) of stallings, soft tissue measuring 0.1 x 0.1 x 0.1 cm to 0.4 x 0.2 x 0.2 cm submitted entirely in 1 cassette(s) Part B: RANDOM COLON: Received in formalin are 4 fragment(s) of stallings, soft tissue measuring 0.3 x 0.2 x 0.1 cm to 0.6 x 0.1 x 0.1 cm submitted entirely in 1 cassette(s) /KIMBERLY 05/26/2024 2320 Local . 01 Microscopic: . A. An immunohistochemical stain was performed to evaluate for Helicobacter organisms and is negative. The control stain showed appropriate reactivity. . * This test was developed and its performance characteristics determined by [facility]. It has not been cleared or approved by the U.S. Food and Drug Administration. The FDA has determined that such clearance or approval is not necessary. This test is used for clinical purposes. It should not be regarded as investigational or for research. . 01 Pathologist provided ICD-10: R10.9 . 01 CPT . 622735, 605116, J14755 Specimen Comment: A courtesy copy of this report has been sent to [phone] Performed at: [address] [address], [place], [place] [id number] MD Rohan Angel MD Phone: [phone]
[2024-05-23 14:18] VITALS: BMI 22.4
[2024-05-23 14:24] VITALS: BP 97/72; PULSE 75; RESP 16; TEMP 36.2; O2SAT 98
[2024-05-23] MEDS: LACTATED RINGERS 1,000 ML 42 ML IV (14:30)
--- NOTE | 2024-05-23 14:51 | PM.HP.1 ---
History of Present Illness History of Present Illness Date Patient Seen: 05/23/24 Time Patient Seen: 14:51 Chief complaint: EGD & Colonoscopy Narrative: 23-year-old woman with chronic abdominal pain here for diagnostic upper and lower endoscopy. No interval change in health since last seen April 2024. COUNT INCLUDES THE [facility] Medical History (Updated 05/20/24 @ 00:01 by ) PCOS (polycystic ovarian syndrome) COVID-19 Cough Sinus infection Status post vacuum-assisted vaginal delivery Major depressive disorder, recurrent severe without psychotic features Depression Concussion Generalized anxiety disorder (04/26/17) Primary insomnia (06/20/16) Menorrhagia with irregular cycle (06/20/16) Surgical History Hx of appendectomy Family History Other Family history non-contributory Social History marital status: unmarried,single details: Lives with both parents number of children: 1 household members: none lives independently: Yes occupational status: employed firearms in home: Yes (locked but patient states has access to [employer].) Smoking Status: Never smoker alcohol intake: never substance use type: does not use and marijuana Meds Home Medications and Allergies Home Medications Medication Instructions Recorded Confirmed Type etonogestrel 68 mg subdermal 1 implant subdermal ONCE #1 ea 06/04/23 04/30/24 Rx implant (Nexplanon) escitalopram oxalate 10 mg tablet 15 mg (1.5 x 10 mg) PO DAILY #45 01/14/24 05/23/24 Rx tabs hyoscyamine sulfate 0.125 mg tablet 0.125 mg PO BID-QID PRN dyspepsia 03/02/24 04/30/24 Rx #30 tabs ondansetron 4 mg disintegrating 4 mg PO Q8H PRN nausea and 03/02/24 04/30/24 Rx tablet vomiting #30 tabs midodrine 10 mg tablet 20 mg PO DAILY Hypotension 04/30/24 05/23/24 History Allergies Allergy/AdvReac Type Severity Reaction Status Date / Time amoxicillin [AMOXICILLIN] Allergy Mild RASH Verified 05/23/24 14:13 Exam Vital Signs (past 8 hours): - 05/23/24 14:24 Temperature 97.2 F L Pulse Rate 75 Respiratory Rate 16 Blood Pressure 97/72 Pulse Oximetry 98 Oxygen Delivery Method Room Air Oxygen Delivery Method Room Air Narrative Exam Narrative: General adult woman alert oriented no acute distress Assessment & Plan Assessment & Plan narrative: 23-year-old woman with chronic abdominal pain of unknown etiology here for diagnostic upper and lower endoscopy. Technical details were discussed. Risks, benefits, alternatives explained. Risks including but not limited to myocardial infarction, aspiration, bleeding, pain, missed lesion, incomplete examination, need for further radiographic studies, intestinal injury, and need for major abdominal surgery were discussed. All questions were answered to their satisfaction, and they are in agreement with this plan. Time-Based Coding :: [TOTAL MINUTES] spent with patient and on the chart (including review of chart, obtaining history, exam, reviewing outside data, placing orders, documenting exam and treatment plan, and counseling patient) on [DATE].
[2024-05-23 15:25] VITALS: BP 86/37; PULSE 66; RESP 22; TEMP 36.9; O2SAT 98
[2024-05-23 15:30] VITALS: BP 89/46; PULSE 60; RESP 22; O2SAT 100
--- NOTE | 2024-05-23 15:33 | PM.OP.EC ---
Operative Date/Time/Diagnoses Date of procedure: 05/23/24 Time of procedure: 15:33 Pre-op diagnosis: Abdominal pain Post-op diagnosis: other (Gastritis) Procedure & Clinicians Study performed: Diagnostic esophagogastroduodenoscopy colonoscopy Same procedure as scheduled: Yes Indications: Chronic abdominal pain Surgeon: Abel Frias Procedure Notes Procedure in detail: The history and physical was performed/updated and the patient is ASA class is 2. The procedure was discussed in detail with the patient. Potential risks complications including infection, bleeding, missed diagnosis, perforation, need for surgery, and were explained. Their questions were answered and informed consent was obtained. Patient placed in left lateral decubitus position. Time out was performed. Procedural sedation was administered by Anesthesia. A bite block was placed. the scope was inserted into the mouth and advanced through the esophagus and into the stomach. the pylorus was intubated and the duodenum was examined to the 2nd portion.. The scope was retroflexed within the stomach. The stomach was then decompressed and scope pulled back to the GE junction. The scope was then removed Examination began with a thorough inspection of the perianal area there was no evidence of fissures, fistulae, external hemorrhoids or cutaneous malignancy. The colonoscopy scope was then placed into the anal canal and was advanced to the cecum, which was identified by the ileocecal valve, the appendiceal orifice and the confluence of the taenia. The scope was then slowly withdrawn examining colon thoroughly in all directions, irrigating it of any residual stool. FINDINGS -Moderate gastritis within the body of the stomach. Multiple biopsies taken. There flecks of clot within the stomach no active hemorrhage or distinct ulcer. -no esophagitis or duodenitis -Colon is unremarkable. Biopsy of colon taken with forceps rule out micro colitis The patient tolerated the procedure well. They will be discharged once criteria are met. The prep was of good/excellent quality. The withdrawl time was 6 minutes. Specimen(s): other (gastric, colon) Impression: gastritis Post-procedure Recommendations: Start medication(s) (omeprazole and carafate) Disposition: same day surgery
[2024-05-23 15:35] VITALS: BP 101/57; PULSE 59; RESP 22; O2SAT 100
[2024-05-23 15:40] VITALS: BP 116/74; PULSE 77; RESP 13; O2SAT 100
[2024-05-23 15:44] VITALS: BP 112/71; PULSE 68; RESP 13; O2SAT 99
== END 2024-05-23 16:44 | disposition home or self-care (01) ==
PROVIDERS: PCP Family Medicine; Referring Provider Surgery; Visit Provider Surgery
PROC: 0DJ08ZZ Inspection of Upper Intestinal Tract, Via Natural or Artificial Opening Endoscopic (ICD-10-PCS; CPT 43235; principal; 2024-05-23 15:00)
PROC: 0DJD8ZZ Inspection of Lower Intestinal Tract, Via Natural or Artificial Opening Endoscopic (ICD-10-PCS; CPT 45378; 2024-05-23 15:00)
DX: R10.9 Unspecified abdominal pain (principal); K29.70 Gastritis, unspecified, without bleeding
CPT/HCPCS: 45380; 43239; J2704